=== PATIENT | male | born 1950 | race Caucasian/White ===

== ENCOUNTER → 2017-12-21 09:10 | Outpatient (CLI) | payer MEDICARE, SELFPAY ==
[2017-12-21 13:16] LABS: Absolute Lymphocyte Count 1.56 X10^3/ul (0.83-4.51); Absolute Neutrophil Count 5.3 X10^3/uL (2.0-7.7); Basophil# 0.02 X10^3/uL; Basophil% 0.3 % (0-1); Eosinophil# 0.26 X10^3/uL; Eosinophils% 3.4 % (0-5); Hematocrit 45.3 % (40-54); Hemoglobin 15.3 g/dl (13.0-16.5); Lymphocyte # 1.56 X10^3/ul (4.0); Lymphocyte % 20.2 % (19-41); Mean Corp Hgb Conc 33.8 g/gl (32-36); Mean Corpuscular Hgb 31.5 pg (27.0-32.0); Mean Corpuscular Volume 93.2 fL (80-94); Mean Platelet Vol. 10.3 fl (6.2-12.0); Monocyte# 0.59 X10^3/uL; Monocyte% 7.7 % (0-10); Neutrophil # 5.26 X10^3/uL (2.7-7.7); Neutrophil % 68.1 % (47-70); Platelet Count 183 K/mm3 (150-450); RBC Distribution Width SD 43.9 fl (35.1-43.9); Red Blood Count 4.86 M/mm3 (4.6-6.2); White Blood Count 7.7 K/mm3 (4.4-11.0)
[2017-12-21 13:18] LABS: POSITIVE COUNT NO; POSITIVE DIFFERENTIAL NO; POSITIVE MORPHOLOGY NO
[2017-12-21 13:23] LABS: Anion Gap 8 (5-15); BUN 16 mg/dL (7-18); BUN/Creat Ratio 17.3 RATIO (10-20); Chloride 105 mmol/L (98-107); Creatinine, Serum 0.93 mg/dL (0.70-1.30); EST Glomerular Filtration Rate 86 mL/min (>60); Est Glom Filt Rate - Afr Amer 105 mL/min (>60); Glucose 172 mg/dL (74-106); Potassium 4.4 mmol/L (3.5-5.1); Sodium Level 139 mmol/L (136-145)
== END ==
PROVIDERS: Visit Provider Family Medicine
DX: E11.9 Type 2 diabetes mellitus without complications (principal); I10 Essential (primary) hypertension
CPT/HCPCS: 36415; 80048; 85025

== ENCOUNTER → 2020-12-17 20:05 | Outpatient (CLI) | payer MEDICARE, SELFPAY | PROVIDERS: PCP Family Medicine; Visit Provider Internal Medicine Critical Care Medicine | DX: G47.33 Obstructive sleep apnea (adult) (pediatric) (principal) | CPT/HCPCS: 95811 ==

== ENCOUNTER 2021-02-02 17:37 | Emergency (ER) | payer MEDICARE, SELFPAY ==
[2021-01-31 08:41] VITALS: BMI 34.0
[2021-02-02 17:39] VITALS: BP 164/95; PULSE 87; RESP 17; TEMP 36.5; O2SAT 98; BMI 31.4
[2021-02-02 17:42] VITALS: O2SAT 96
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
[2021-02-02] MEDS: Ondansetron 4 MG/2 ML Vial IV (18:34)
[2021-02-02] MEDS: Morphine 4 MG/ML Syringe IV ×2 (18:34→21:24)
[2021-02-02 18:45] VITALS: BP 161/84; PULSE 92; RESP 16; O2SAT 96
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
[2021-02-02 19:23] VITALS: BP 161/84; PULSE 92; RESP 20; O2SAT 96
--- NOTE | 2021-02-02 20:01 | RAD_ITS ---
INDICATION: bloating EXAMINATION/TECHNIQUE: X-RAY - XR Abdomen 1 View COMPARISON: CT earlier same day FINDINGS: BOWEL GAS PATTERN: Non-obstructive. No bowel or stomach distention. FREE AIR: Not assessed on a single supine view. ORGANOMEGALY: Not seen. CALCIFICATIONS: No abnormal calcifications observed. LOWER CHEST: No acute pathology. BONES AND SOFT TISSUES: No acute pathology. There is excretion of intravenously administered contrast into the urinary bladder. RAD/Abdomen Single View IMPRESSION: Normal abdomen. Electronically Signed: Giovani Wright MD at 20:51 EDT Tel , Service support ,
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
[2021-02-02 21:25] VITALS: BP 155/81; PULSE 95; RESP 14; O2SAT 95
== END 2021-02-02 21:37 | disposition home or self-care (01) ==
LOC: ED 19:20
PROVIDERS: Emergency Provider Emergency Medicine; PCP Family Medicine
DX: S80.812A Abrasion, left lower leg, initial encounter (principal); S20.212A Contusion of left front wall of thorax, initial encounter; V43.52XA Car driver injured in collision with other type car in traffic accident, initial encounter; Y93.9 Activity, unspecified; Y92.410 Unspecified street and highway as the place of occurrence of the external cause; Y99.9 Unspecified external cause status
CPT/HCPCS: 71260; 73590; 74018; 74177; 96374; 96375; 96376; 99283; J7050; Q9967; A4216; J2405

== ENCOUNTER 2021-04-16 17:20 | Emergency (ER) | payer MEDICARE, SELFPAY ==
[2021-04-16 17:21] VITALS: BP 176/98; PULSE 83; RESP 16; TEMP 36.8; O2SAT 98; BMI 33.9
[2021-04-16 17:26] VITALS: BP 176/98; PULSE 83; RESP 16; TEMP 36.8; O2SAT 98
--- NOTE | 2021-04-16 17:52 | EDS_ITS ---
HPI History of Present Illness Chief Complaint: Allergic Reaction Informant: patient Onset/Context/Timing Onset: Yesterday Context: Gradual Onset Current Severity: Mild Maximum Severity: Mild Narrative Narrative: Patient presents secondary to allergic reaction. Patient states yesterday he noted a rash on his abdomen and chest and some swelling in his lower lip. He was out mowing recently but denies any bites that he can think of. He also takes lisinopril. No other new medications or foods. Patient states after taking his morning medicines he felt like his lip swelling got a little worse. He did try some Benadryl around noon with no significant improvement. [facility] Medical History (Updated 04/16/21 @ 21:[address] Mckenzie Gomez MD) Diabetes mellitus Essential hypertension Hyperlipidemia Obesity Home Medications ascorbic acid (vitamin C) 500 mg capsule 500 mg PO DAILY 11/21/20 [History Last Taken Unknown] aspirin 81 mg tablet,delayed release 81 mg PO DAILY 11/21/20 [History Last Taken Unknown] glimepiride 4 mg tablet 4 mg PO DAILY 11/21/20 [History Last Taken Unknown] metformin 850 mg tablet 850 mg PO TID 11/21/20 [History Last Taken Unknown] montelukast 10 mg tablet 10 mg PO DAILY 11/21/20 [History Last Taken Unknown] omega 0-mbm-uen-fish oil 60 mg-90 mg-500 mg capsule 1 cap PO DAILY 11/21/20 [History Last Taken Unknown] vitamin E (dl, acetate) 400 unit capsule 450 mg PO DAILY 11/21/20 [History Last Taken Unknown] docusate sodium 100 mg PO DAILY #20 capsule 02/02/21 [Rx Last Taken Unknown] amlodipine [Norvasc] 5 mg PO DAILY #30 tab 04/16/21 [Rx Last Taken Unknown] prednisone 40 mg PO DAILY #6 tab 04/16/21 [Rx Last Taken Unknown] Allergy/AdvReac Type Severity Reaction Status Date / Time No Known Allergies Allergy Unverified 02/02/21 17:39 Family History Other Cancer Heart disease Surgical History History of knee replacement Social History Smoking Status: Never smoker ROS ROS ED Constitutional Constitutional ED: Denies chills or fever(s) Eyes Eyes: Denies change in vision ENT ENT ED: Reports other Details: Lower lip edema ; Denies sore throat Cardiovascular Cardiovascular: Denies chest pain Respiratory/Chest Respiratory/Chest: Denies cough or dyspnea Gastrointestinal Gastrointestinal: Denies abdominal pain, diarrhea, nausea or vomiting Genitourinary Genitourinary ED: Denies dysuria Musculoskeletal Musculoskeletal: Denies back pain Integumentary Reports rash Neurologic Neurologic: Denies headache(s) or weakness Psychiatric Psychiatric: Denies anxiety or depression Endocrine Endocrinology: Denies polydipsia or polyuria Allergic/Immunologic Allergic/Immunologic ED: Denies urticaria EXAM Physical Exam Const Vital Signs: 04/16/21 17:21 04/16/21 17:26 04/16/21 19:59 Temperature 98.2 F 98.2 F Temperature Source Temporal Temporal Pulse Rate 83 83 90 Respiratory Rate 16 16 16 Blood Pressure 176/98 H 176/98 H 208/111 H Blood Pressure Mean 124 124 143 Pulse Ox 98 98 99 Oxygen Delivery Method Room Air Room Air Room Air Positive well nourished and well developed General Appearance ED: well developed HEENT Reports normocephalic and head/scalp atraumatic HEENT Narrative: Mild lower lip edema. No tongue edema. Posterior pharynx exam normal. Speaks with a strong voice and tolerate secretions well. Eyes PERRL and EOMs intact bilaterally Neck supple Chest Wall inspection of chest normal and palpation of chest normal Resp normal respiratory effort and clear to auscultation bilaterally Cardio regular rate and regular rhythm GI normal to inspection, nondistended, normoactive bowel sounds Palpation: soft Extremity normal to inspection Neuro oriented x3 and no sensory deficits noted Sensorium / Orientation: alert Motor Exam: strength 5/5 throughout Psych mental status grossly normal Skin Skin Narrative: Faint urticarial lesions noted on the abdomen and bilateral shoulders. MDM MDM MDM Narrative Medical decision making narrative: Patient was given Benadryl, Solu-Medrol, Pepcid and observed on monitoring analyst. Treatment and Re-Evaluation Comments:: Patient has been observed for nearly 4 hours. Lower lip swelling is improving. He has been able to tolerate p.o. without difficulty. He did recei ve a dose of labetalol for blood pressure. I spoke with the patient's primary care physician and would like his Norvasc instead. He would like to see the patient in the office on Thursday. Discharge Plan Triage Chief Complaint: Allergic Reaction ED Provider: Mckenzie Gomez Dx/Rx/DC Orders Clinical Impression: Angioedema Instructions: ED Angioedema Prescriptions: New amlodipine [Norvasc] 5 mg tablet 5 mg PO DAILY Qty: 30 RF: 0 prednisone 20 mg tablet 40 mg PO DAILY Qty: 6 RF: 0 Discontinued lisinopril 10 mg tablet 10 mg PO DAILY RF: 0 No Action omega 6-sxe-uyy-fish oil [Fish Oil] 60-90-500 mg capsule 1 cap PO DAILY RF: 0 glimepiride 4 mg tablet 4 mg PO DAILY RF: 0 montelukast 10 mg tablet 10 mg PO DAILY RF: 0 ascorbic acid (vitamin C) 500 mg capsule 500 mg PO DAILY RF: 0 vitamin E (dl, acetate) 400 unit capsule 450 mg PO DAILY RF: 0 aspirin 81 mg tablet,delayed release (DR/EC) 81 mg PO DAILY RF: 0 metformin 850 mg tablet 850 mg PO TID RF: 0 docusate sodium 100 MG capsule 100 mg PO DAILY Qty: 20 RF: 0 Primary Care Provider: Willie Pitts Referrals: Willie Pitts MD [Primary Care Provider] - 3-5 Days Activity Restrictions/Additional Instructions: You will stop taking your lisinopril for blood pressure. He will start taking Norvasc instead. This prescription has been sent to the pharmacy for you. Dr. Pitts would like to see you in the office on Thursday for a repeat evaluation. Please call his office tomorrow for an appointment. Disposition Disposition: Home, self care
[2021-04-16] MEDS: MethylPREDNISolone 125 MG/2 ML Vial IV (18:01)
[2021-04-16] MEDS: DiphenhydrAMINE 50 MG/ML Syringe 25 MG IV (18:02)
[2021-04-16] MEDS: Famotidine 200 MG/20 ML MDV 20 MG in 0.9% Normal Saline (Pres. free 8 ML 300 MG IV (18:08)
--- NOTE | 2021-04-16 19:32 | CM.ED ---
SW Note TOMMY Referral : RN Reason for Referral: Patient has had multiple losses this year, including of 28 years, to COVID. Patient had 4 friends and 2 of 's sister also from COVID. SW met with patient. SW provided emotional support. Patient feels shame related to him not being present when his of COVID. He and were 28 years. Patient reports he has thought about going to [facility]. SW discussed counseling that [facility]osp[facility] provides and encouraged patient to contact [facility]. Patient verbalized understanding and appeared receptive to reaching out for counseling support. SW provided patient with phone number for [facility]. Plan: Discharge with phone number to contact [facility] for counseling support. Vannesa TAYLOR
[2021-04-16 19:59] VITALS: BP 208/111; PULSE 90; RESP 16; O2SAT 99
[2021-04-16] MEDS: Labetalol 100 MG/20 ML Vial 10 MG IV (20:00)
[2021-04-16 21:25] VITALS: BP 154/85; PULSE 84; RESP 16; O2SAT 94
[2021-04-16 21:28] VITALS: BP 154/85; PULSE 84; RESP 16; O2SAT 94
== END 2021-04-16 21:33 | disposition home or self-care (01) ==
PROVIDERS: Emergency Provider Emergency Medicine; PCP Family Medicine
DX: T78.3XXA Angioneurotic edema, initial encounter (principal); Z96.659 Presence of unspecified artificial knee joint; E11.9 Type 2 diabetes mellitus without complications; I10 Essential (primary) hypertension; E78.5 Hyperlipidemia, unspecified
CPT/HCPCS: 96374; 96375; 99284; A4216; J3490

== ENCOUNTER 2021-05-09 11:25 | Emergency (ER) | payer MEDICARE, SELFPAY ==
[2021-04-23 08:38] VITALS: BMI 33.9
[2021-05-09 11:26] VITALS: BP 180/105; PULSE 95; RESP 16; TEMP 36; O2SAT 97; BMI 34.2
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
--- NOTE | 2021-05-09 11:48 | EDS_ITS ---
HPI History of Present Illness Chief Complaint: Allergic Reaction Informant: patient Onset/Context/Timing Onset: Today Context: Gradual Onset Timing: Intermittent Current Severity: Moderate Maximum Severity: Moderate Narrative Narrative: Patient is a 71-year-old male presents to the emergency department with urticaria. Patient states that he was recently found to have angioedema. His lisinopril was stopped. He was put on an alpha-ashwin. He states his been taking it for 2 weeks. States today, he noticed a area of hives on his arm. Shortly thereafter, it spread to his chest and abdomen. He states he also had some facial fullness and flushing. He denies trouble speaking or swallowing. He states that he also had a mechanical fall last night. He was try to get out of bed, tripped over his dog, and landed on his left chest and shoulder. He did not strike his head or lose consciousness. [facility] Medical History Diabetes mellitus Essential hypertension Hyperlipidemia Obesity Home Medications ascorbic acid (vitamin C) 500 mg capsule 500 mg PO DAILY 11/21/20 [History Last Taken Unknown] aspirin 81 mg tablet,delayed release 81 mg PO DAILY 11/21/20 [History Last Taken Unknown] glimepiride 4 mg tablet 4 mg PO DAILY 11/21/20 [History Last Taken Unknown] metformin 850 mg tablet 850 mg PO TID 11/21/20 [History Last Taken Unknown] montelukast 10 mg tablet 10 mg PO DAILY 11/21/20 [History Last Taken Unknown] omega 4-mfq-owy-fish oil 60 mg-90 mg-500 mg capsule 1 cap PO DAILY 11/21/20 [History Last Taken Unknown] alprazolam 1 - 2 mg PO BID 05/09/21 [History Last Taken Unknown] prednisone 60 mg PO DAILY #15 tablet 05/09/21 [Rx Last Taken Unknown] terazosin 1 mg PO QHS 05/09/21 [History Last Taken Unknown] Allergy/AdvReac Type Severity Reaction Status Date / Time lisinopril AdvReac swelling Verified 05/09/21 11:28 Family History Other Cancer Heart disease Surgical History History of knee replacement Social History Smoking Status: Never smoker ROS ROS ED Constitutional Constitutional ED: Denies chills or fever(s) Eyes Eyes: Denies blurry vision or change in vision ENT ENT ED: Denies ear pain or sore throat Cardiovascular Cardiovascular: Denies chest pain or palpitations Respiratory/Chest Respiratory/Chest: Denies cough, dyspnea or dyspnea on exertion Gastrointestinal Gastrointestinal: Denies abdominal pain, nausea or vomiting Genitourinary Genitourinary ED: Denies dysuria or urinary frequency Musculoskeletal Musculoskeletal: Denies arthralgias or myalgias Integumentary Reports rash Neurologic Neurologic: Denies headache(s) or paresthesias Psychiatric Psychiatric: Denies anxiety or depression Endocrine Endocrinology: Denies polydipsia or polyuria Allergic/Immunologic Allergic/Immunologic ED: Denies urticaria EXAM Physical Exam Const Vital Signs: 05/09/21 11:26 Temperature 96.8 F L Temperature Source Temporal Pulse Rate 95 Respiratory Rate 16 Blood Pressure 180/105 H Blood Pressure Mean 130 Pulse Ox 97 Oxygen Delivery Method Room Air Positive well nourished and well developed General Appearance ED: well developed HEENT Reports normocephalic, head/scalp atraumatic and moist mucous membranes Eyes PERRL and EOMs intact bilaterally Neck no lymphadenopathy and supple General: Negative for tenderness Chest Wall inspection of chest normal Chest Narrative: Tenderness over left lateral ribs without step-off. Resp normal respiratory effort and clear to auscultation bilaterally Cardio regular rate, regular rhythm and no murmurs GI normal to inspection, nondistended, normoactive bowel sounds Palpation: Negative for tender, guarding or rebound tenderness present Back/Spine no CVA tenderness Cervical Spine: Negative for cervical spine tenderness Thoracic Spine / Upper Back: Negative for thoracic spinal tenderness Extremity normal to inspection General Extremety ED: Negative for tenderness Neuro oriented x3 and CN's II-XII intact bilaterally Neuro Narrative: No focal deficits appreciated. Sensorium / Orientation: alert Psych mental status grossly normal Skin no wounds and skin turgor normal Skin Narrative: Urticaria on chest and arms. Mild facial urticaria. Rashes: rashes noted MDM MDM MDM Narrative Medical decision making narrative: Patient presents with rash. It does appear to be urticarial. He has no angioedema. He has no evidence of anaphylaxis. Patient was given Benadryl and Solu-Medrol. He was observed. He had resolution of his rash and no recurrence. I did obtain plain films of his shoulder and ribs given his fall. These are both unremarkable for fracture. At this point, I am going to discharge patient with a short prednisone burst. I am going to have him stop his in hypertensives until he follows up with his primary care. He will be discharged home. Impression 1. Allergic reaction to drug 2. Left shoulder contusion Radiography Diagnostic Testing: Radiology Impression Shoulder X-Ray 05/09/21 11:44 IMPRESSION: 1. No acute fracture or dislocation. 2. Hydroxyapatite deposition disease (calcific tendinitis). Electronically Signed: Aden Pardo MD at 12:49 EDT Tel , Service support , Ribs w/Chest X-Ray 05/09/21 12:25 IMPRESSION: RIBS: Normal x-ray examination of the ribs. CHEST: Normal x-ray examination of the chest. Electronically Signed: Aden Pardo MD at 12:51 EDT Tel , Service support , Discharge Plan Triage Chief Complaint: Allergic Reaction ED Provider: Irving Dumont Dx/Rx/DC Orders Instructions: ED ADVERSE DRUG REACTION Allergic Prescriptions: New prednisone 20 MG tablet 60 mg PO DAILY Qty: 15 RF: 0 No Action omega 6-gpf-obr-fish oil [Fish Oil] 60-90-500 mg capsule 1 cap PO DAILY RF: 0 glimepiride 4 mg tablet 4 mg PO DAILY RF: 0 montelukast 10 mg tablet 10 mg PO DAILY RF: 0 ascorbic acid (vitamin C) 500 mg capsule 500 mg PO DAILY RF: 0 aspirin 81 mg tablet,delayed release (DR/EC) 81 mg PO DAILY RF: 0 metformin 850 mg tablet 850 mg PO TID RF: 0 alprazolam 1 mg tablet 1 - 2 mg PO BID RF: 0 terazosin 1 mg capsule 1 mg PO QHS RF: 0 Primary Care Provider: Willie Pitts Referrals: Willie Pitts MD [Primary Care Provider] - Activity Restrictions/Additional Instructions: Stop taking your blood pressure medication until you see your doctor.
[2021-05-09] MEDS: DiphenhydrAMINE 50 MG/ML Syringe 25 MG IV (12:07)
[2021-05-09] MEDS: MethylPREDNISolone 125 MG/2 ML Vial IV (12:08)
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
[2021-05-09 13:28] VITALS: BP 157/86; PULSE 79; RESP 17; O2SAT 99
== END 2021-05-09 13:29 | disposition home or self-care (01) ==
LOC: ED 12:46
PROVIDERS: Emergency Provider Emergency Medicine; PCP Family Medicine
DX: T78.40XA Allergy, unspecified, initial encounter (principal); S40.012A Contusion of left shoulder, initial encounter; W01.0XXA Fall on same level from slipping, tripping and stumbling without subsequent striking against object, initial encounter; E11.9 Type 2 diabetes mellitus without complications; E78.5 Hyperlipidemia, unspecified; I10 Essential (primary) hypertension; E66.9 Obesity, unspecified; Z79.52 Long term (current) use of systemic steroids; Z79.82 Long term (current) use of aspirin; Z79.84 Long term (current) use of oral hypoglycemic drugs; Z79.899 Other long term (current) drug therapy
CPT/HCPCS: 71101; 73030; 96374; 96375; 99284; J7040

== ENCOUNTER → 2021-05-20 20:00 | Outpatient (CLI) | payer MEDICARE, SELFPAY ==
[2021-04-23 08:38] VITALS: BMI 33.9
== END ==
PROVIDERS: PCP Family Medicine; Referring Provider Internal Medicine Critical Care Medicine; Visit Provider Internal Medicine Critical Care Medicine
DX: G47.33 Obstructive sleep apnea (adult) (pediatric) (principal)
CPT/HCPCS: 95811

== ENCOUNTER 2022-04-11 09:26 | Outpatient (CLI) | payer MEDICARE, SELFPAY ==
[2022-04-11 12:34] LABS: Absolute Lymphocyte Count 1.73 X10^3/uL (0.83-4.51); Absolute Neutrophil Count 4.7 X10^3/uL (2.0-7.7); Basophil# 0.05 X10^3/uL; Basophil% 0.7 % (0-1); Eosinophil# 0.23 X10^3/uL; Eosinophils% 3.2 % (0-5); Hematocrit 43.2 % (40-54); Hemoglobin 15.1 g/dL (13.0-16.5); Lymphocyte # 1.73 X10^3/ul (0.83-4.51); Lymphocyte % 23.8 % (19-41); Mean Corpuscular Hgb 32.2 pg (27.0-32.0); Mean Corpuscular Volume 92.1 fL (80-94); Mean Platelet Vol. 9.6 fl (6.2-12.0); Monocyte# 0.58 X10^3/uL; NRBC Flagged by Analyzer 0 % (0-5); Neutrophil # 4.65 X10^3/uL (2.7-7.7); Neutrophil % 63.8 % (47-70); Platelet Count 182 K/mm3 (150-450); RBC Distribution Width CV 12.5 % (11.6-14.6); RBC Distribution Width SD 41.7 fl (35.1-43.9); Red Blood Count 4.69 M/mm3 (4.6-6.2); White Blood Count 7.3 K/mm3 (4.4-11.0)
[2022-04-11 12:52] LABS: ALB/GLOB Ratio 1.1 RATIO (0.9-2.4); AST(SGOT) 13 U/L (15-37); Alanine Aminotransfer ALT/SGPT 25 U/L (16-61); Alkaline Phosphatase 77 U/L (45-117); Anion Gap 5 (5-15); BUN 17 mg/dL (7-18); BUN/Creat Ratio 15.7 RATIO (10-20); Chloride 106 mmol/L (98-107); Cholesterol 179 mg/dL (200); Creatinine, Serum 1.08 mg/dL (0.70-1.30); EST Glomerular Filtration Rate 71 mL/min (>60); Est Glom Filt Rate - Afr Amer 86 mL/min (>60); Globulin 3.8 g/dL (2.2-4.2); Glucose 163 mg/dL (74-106); High Density Lipoprotein 52 mg/dL; PSA,Total - Annual Screen 1.19 ng/mL (0.00-4.00); Potassium 4.3 mmol/L (3.5-5.1); Protein, Total 7.8 g/dL (6.4-8.2); Sodium Level 138 mmol/L (136-145); Triglycerides 83 mg/dL; Very Low Density Lipoprotein 17 mg/dL (5-40)
== END 2022-04-11 23:59 | disposition home or self-care (01) ==
LOC: MTLAB 09:27
PROVIDERS: PCP Family Medicine; Referring Provider Family Medicine; Visit Provider Family Medicine
DX: E11.65 Type 2 diabetes mellitus with hyperglycemia (principal); E78.5 Hyperlipidemia, unspecified; I10 Essential (primary) hypertension; Z80.42 Family history of malignant neoplasm of prostate; Z12.5 Encounter for screening for malignant neoplasm of prostate
CPT/HCPCS: 36415; 80053; 80061; 84153; 85025; G0103

== ENCOUNTER 2022-05-08 11:24 | Emergency (ER) | payer MEDICARE, SELFPAY ==
[2022-05-08 11:25] VITALS: BP 141/92; PULSE 105; RESP 18; TEMP 36.6; O2SAT 96; BMI 36.0
--- NOTE | 2022-05-08 11:59 | RAD_ITS ---
STUDY: X-RAY - SOFT TISSUE NECK REASON FOR EXAM: Male, 72 years old. Anterior neck pain, change in voice TECHNIQUE: 2 view(s) of the neck were obtained. COMPARISON: None. FINDINGS: Normal visualized nasopharynx, oropharynx, hypopharynx. Normal epiglottis. Normal visualized subglottic tracheal air column. Normal prevertebral soft tissue structures. There are degenerative changes of the cervical spine with cervical spondylosis. The soft tissue structures are unremarkable. RAD/Neck for Soft Tissue IMPRESSION: 1. Normal x-ray soft tissue neck. 2. CT of the soft tissues of the neck can be performed if symptoms persist. Electronically Signed: Ebenezer Bell MD at 12:25 EDT ,
--- NOTE | 2022-05-08 12:15 | EX.ED.VIS.UR ---
HPI HPI - URI History of Present Illness Chief Complaint: Other, Pain/Inj Detail of Chief Complaint: Sore throat, difficulty swallowing Informant: patient Onset/Context/Timing Onset: Weeks (Symptoms started proxy 1 week ago. Negative rapid strep and follow-up culture) Context: Sudden Onset Timing: Continuous Quality: Pain Location: Anterior neck bilaterally Current Severity: Mild Maximum Severity: Moderate Worsened by: Swallowing, Eating Solids and Drinking Liquids Relieved by: Not Relieved By Tylenol or NSAIDs Associated Symptoms Associated Symptoms: Positive for Nasal Congestion (The initial 3 days of illness) and Myalgias (Initial days of illness); Negative for Headache, Sinus Pressure, Nausea, Vomiting, Diarrhea, Shortness of Breath, Chest Pain, Nonproductive cough, Hemoptysis or Productive Cough Narrative Narrative: Patient is a 72-year-old male who presents with sore throat. He reports difficulty swallowing. He may have slight change in voice. He denies fever, chills night sweats. States initially there were white spots in the back of his throat. He went to urgent care. Rapid strep was negative. Follow-up culture was negative. Patient has persistent symptoms. He denies documented fever and denies chills. Denies cough. He initially had nasal congestion. His nasal congestion has resolved. He denies GI symptoms. He initially had myalgias and arthralgias. Prior similar symptoms: Yes Recent Illness/Hospitalization: No ROS ROS ED Constitutional Constitutional ED: Denies chills, fever(s), subjective, sweats or weight loss Eyes Eyes: Denies blurry vision, change in vision or diplopia ENT ENT ED: Reports sore throat; Denies ear pain or rhinorrhea Cardiovascular Cardiovascular: Denies chest pain, palpitations or racing heartbeat Respiratory/Chest Respiratory/Chest: Denies cough, dyspnea or dyspnea on exertion Gastrointestinal Gastrointestinal: Denies diarrhea, nausea or vomiting Musculoskeletal Musculoskeletal: Reports arthralgias, myalgias and neck pain; Denies back pain Integumentary Denies Abrasions or rash Neurologic Neurologic: Denies headache(s) Hematologic/Lymphatic Hematologic/Lymphatic: Reports lymphadenopathy; Denies easy bleeding or easy bruising Allergic/Immunologic Allergic/Immunologic ED: Denies mouth swelling, tongue swelling or urticaria [facility] Medical History (Updated 05/08/22 @ 12:[address] Alexander Aleln MD) Diabetes mellitus Essential hypertension Hyperlipidemia Obesity Home Medications ascorbic acid (vitamin C) 500 mg capsule 500 mg PO DAILY 11/21/20 [History Last Taken Unknown] aspirin 81 mg tablet,delayed release 81 mg PO DAILY 11/21/20 [History Last Taken Unknown] glimepiride 4 mg tablet 4 mg PO DAILY 11/21/20 [History Last Taken Unknown] metformin 850 mg tablet 850 mg PO TID 11/21/20 [History Last Taken Unknown] montelukast 10 mg tablet 10 mg PO DAILY 11/21/20 [History Last Taken Unknown] omega 6-zru-kdf-fish oil 60 mg-90 mg-500 mg capsule (Fish Oil) 1 cap PO DAILY 11/21/20 [History Last Taken Unknown] alprazolam 1 mg tablet 1 - 2 mg PO BID 05/09/21 [History Last Taken Unknown] terazosin 1 mg capsule 1 mg PO QHS 05/09/21 [History Last Taken Unknown] doxepin 10 mg capsule 10 mg PO QHS 06/12/21 [History Last Taken Unknown] levocetirizine 5 mg tablet 5 mg PO DAILY 06/12/21 [History Last Taken Unknown] Allergy/AdvReac Type Severity Reaction Status Date / Time lisinopril AdvReac swelling Verified 05/08/22 11:27 Family History Other Cancer Heart disease Surgical History History of knee replacement Social History (Updated 05/08/22 @ 12:[address] Alexander Allen MD) household members: none Smoking Status: Never smoker substance use type: does not use EXAM Physical Exam Narrative Exam Narrative: Patient is a heavyset gentleman appears in no distress. Const Vital Signs: 05/08/22 11:25 05/08/22 11:36 Temperature 97.9 F Temperature Source Temporal Pulse Rate 105 H Respiratory Rate 18 Respiratory Effort Normal Respiratory Pattern Normal Blood Pressure 141/92 H Blood Pressure Mean 108 Pulse Ox 96 Oxygen Delivery Method Room Air Positive well nourished, well developed and obese; Negative for cachectic or contractures General Appearance ED: well developed and NAD; Negative for cachectic, contractures, cyanotic, diaphoretic or pallor Nutritional Appearance: obese; Negative for cachectic HEENT Reports moist mucous membranes HEENT Narrative: Uvula is midline. There is no erythema or exudate. There is no evidence of angioedema. normocephalic and atraumatic Face and Sinus: Negative for sinus tenderness Throat: posterior oropharynx normal Eyes PERRL and EOMs intact bilaterally Eyes Narrative: Sclera is anicteric. Conjunctive is pink. Neck No no lymphadenopathy, supple and no meningeal signs Neck Narrative: There is 1 shoddy anterior left cervical node noted. There is no in-store extra stridor. There is no true discomfort with movement of the larynx. General: lymphadenopathy; Negative for anterior neck swelling Resp normal respiratory effort and clear to auscultation bilaterally Cardio S1 normal heart sound, S2 normal heart sound and no murmurs Rate: regular rate Rhythm: regular rhythm GI non-tender GI Narrative: There is no splenomegaly. There is no tenderness. Neuro oriented x3, CN's II-XII intact bilaterally and no sensory deficits noted Sensorium / Orientation: alert Motor Exam: strength 5/5 throughout Psych mental status grossly normal Psych Narrative: Thought process is normal. Skin General Skin Exam: Negative for jaundice or pallor Lesions: no lesions Rashes: no rashes MDM MDM MDM Narrative Medical decision making narrative: With symptoms for 1 month complaint of anterior neck pain and trouble swallowing soft tissue x-ray of the neck was obtained to assess for retropharyngeal abscess, epiglottitis parapharyngeal abscess Treatment and Re-Evaluation Narrative: 2 view soft tissue x-ray of the neck interpreted independently by me at 1215 reveals no evidence of epiglottitis, retropharyngeal abscess or parapharyngeal abscess. There is no enlarged sublingual tonsils noted either. Discharge Plan Triage Chief Complaint: Other, Pain/Inj ED Provider: Alexander Allen Dx/Rx/DC Orders Clinical Impression: Acute viral pharyngitis Instructions: ED Pharyngitis, Viral Prescriptions: No Action omega 8-dhr-cyp-fish oil [Fish Oil] 60-90-500 mg capsule 1 cap PO DAILY glimepiride 4 mg tablet 4 mg PO DAILY montelukast 10 mg tablet 10 mg PO DAILY ascorbic acid (vitamin C) 500 mg capsule 500 mg PO DAILY aspirin 81 mg tablet,delayed release (DR/EC) 81 mg PO DAILY metformin 850 mg tablet 850 mg PO TID doxepin 10 mg capsule 10 mg PO QHS levocetirizine 5 mg tablet 5 mg PO DAILY alprazolam 1 mg tablet 1 - 2 mg PO BID terazosin 1 mg capsule 1 mg PO QHS Label Comments: TAKE 1 CAPSULE DAILY AT BEDTIME Primary Care Provider: Willie Pitts Referrals: Willie Pitts MD [Primary Care Provider] - 1 Week if not improving Activity Restrictions/Additional Instructions: You can either use Cepastat lozenges or Chloraseptic spray for the discomfort. You have a viral infection. You may be ill for another week. Return if you have drooling, or difficulty breathing. Disposition Disposition: Home, Self Care
== END 2022-05-08 12:28 | disposition home or self-care (01) ==
PROVIDERS: Emergency Provider Emergency Medicine; PCP Family Medicine; Visit Provider Emergency Medicine
DX: J02.8 Acute pharyngitis due to other specified organisms (principal); E11.9 Type 2 diabetes mellitus without complications; M79.10 Myalgia, unspecified site; B97.89 Other viral agents as the cause of diseases classified elsewhere; I10 Essential (primary) hypertension; E78.5 Hyperlipidemia, unspecified
CPT/HCPCS: 70360; 99283

== ENCOUNTER → 2022-06-03 | Outpatient (CLI) | payer MEDICARE, SELFPAY | END | disposition home or self-care (01) | LOC: SL 11:55 | PROVIDERS: PCP Family Medicine; Referring Provider Internal Medicine Critical Care Medicine; Visit Provider Internal Medicine Critical Care Medicine | DX: G47.33 Obstructive sleep apnea (adult) (pediatric) (principal) | CPT/HCPCS: 98960; G0463 ==

== ENCOUNTER → 2022-08-28 | Outpatient (CLI) | payer MEDICARE, SELFPAY | END | disposition home or self-care (01) | LOC: SL 13:52 | PROVIDERS: PCP Family Medicine; Visit Provider Nurse Practitioner Acute Care | DX: G47.33 Obstructive sleep apnea (adult) (pediatric) (principal) | CPT/HCPCS: 98960; G0463 ==

== ENCOUNTER 2023-02-12 09:00 | Outpatient (RCR) | payer MEDICARE, SELFPAY | END 2023-02-13 23:59 | LOC: DC 09:00 | PROVIDERS: PCP Family Medicine; Referring Provider Family Medicine; Visit Provider Family Medicine | DX: E11.49 Type 2 diabetes mellitus with other diabetic neurological complication (principal) | CPT/HCPCS: 97802; G0108 ==

== ENCOUNTER 2023-03-05 09:00 | Outpatient (RCR) | payer MEDICARE, SELFPAY | END 2023-03-15 23:59 | LOC: DC 09:00 | PROVIDERS: PCP Family Medicine; Referring Provider Family Medicine; Visit Provider Family Medicine | DX: E11.49 Type 2 diabetes mellitus with other diabetic neurological complication (principal) | CPT/HCPCS: 97803; G0108 ==

== ENCOUNTER 2023-04-07 08:00 | Outpatient (RCR) | payer MEDICARE, SELFPAY | END 2023-04-15 23:59 | LOC: DC 08:00 | PROVIDERS: PCP Family Medicine; Referring Provider Family Medicine; Visit Provider Family Medicine | DX: E11.49 Type 2 diabetes mellitus with other diabetic neurological complication (principal) | CPT/HCPCS: 97803; G0108 ==

== ENCOUNTER → 2023-04-21 | Outpatient (CLI) | payer MEDICARE, SELFPAY ==
[2023-04-21 12:33] LABS: Absolute Lymphocyte Count 1.35 X10^3/uL (0.83-4.51); Absolute Neutrophil Count 5.5 X10^3/uL (2.0-7.7); Basophil# 0.05 X10^3/uL; Basophil% 0.6 % (0-1); Eosinophil# 0.23 X10^3/uL; Eosinophils% 2.9 % (0-5); Hematocrit 44.2 % (40-54); Hemoglobin 15.2 g/dL (13.0-16.5); Lymphocyte # 1.35 X10^3/ul (0.83-4.51); Lymphocyte % 17.2 % (19-41); Mean Corp Hgb Conc 34.4 g/dL (32-36); Mean Corpuscular Hgb 32.4 pg (27.0-32.0); Mean Corpuscular Volume 94.2 fL (80-94); Mean Platelet Vol. 10.4 fl (6.2-12.0); Monocyte# 0.68 X10^3/uL; Monocyte% 8.7 % (0-10); NRBC Flagged by Analyzer 0 % (0-5); Neutrophil # 5.49 X10^3/uL (2.7-7.7); Neutrophil % 70.1 % (47-70); Platelet Count 190 K/mm3 (150-450); RBC Distribution Width CV 12.3 % (11.6-14.6); RBC Distribution Width SD 42.5 fl (35.1-43.9); Red Blood Count 4.69 M/mm3 (4.6-6.2); White Blood Count 7.8 K/mm3 (4.4-11.0)
[2023-04-21 12:56] LABS: ALB/GLOB Ratio 1.1 RATIO (0.9-2.4); AST(SGOT) 15 U/L (15-37); Alanine Aminotransfer ALT/SGPT 18 U/L (16-61); Albumin, Serum 4.1 g/dL (3.2-5.0); Alkaline Phosphatase 91 U/L (45-117); Anion Gap 7 (5-15); BUN 14 mg/dL (7-18); BUN/Creat Ratio 12.4 RATIO (10-20); Calcium,Total 9.4 mg/dL (8.5-10.1); Chloride 106 mmol/L (98-107); Creatinine, Serum 1.13 mg/dL (0.70-1.30); EST Glomerular Filtration Rate 68 mL/min (>60); Est Glom Filt Rate - Afr Amer 82 mL/min (>60); Globulin 3.7 g/dL (2.2-4.2); Glucose 144 mg/dL (74-106); Potassium 4.2 mmol/L (3.5-5.1); Protein, Total 7.8 g/dL (6.4-8.2); Sodium Level 138 mmol/L (136-145)
== END | disposition home or self-care (01) ==
LOC: BFHLAB 09:21
PROVIDERS: PCP Nurse Practitioner Family; Referring Provider Nurse Practitioner Family; Visit Provider Nurse Practitioner Family
DX: I10 Essential (primary) hypertension (principal)
CPT/HCPCS: 36415; 80053; 85025

== ENCOUNTER → 2024-06-27 | Outpatient (CLI) | payer MEDICARE, SELFPAY ==
[2024-06-27 08:58] LABS: Absolute Lymphocyte Count 1.22 X10^3/uL (0.83-4.51); Absolute Neutrophil Count 4.8 X10^3/uL (2.0-7.7); Basophil# 0.05 X10^3/uL; Basophil% 0.7 % (0-1); Eosinophils% 2.9 % (0-5); Hematocrit 41.8 % (40-54); Hemoglobin 14.4 g/dL (13.0-16.5); Lymphocyte # 1.22 X10^3/ul (0.83-4.51); Lymphocyte % 17.8 % (19-41); Mean Corp Hgb Conc 34.4 g/dL (32-36); Mean Corpuscular Hgb 32.4 pg (27.0-32.0); Mean Corpuscular Volume 94.1 fL (80-94); Mean Platelet Vol. 9.8 fl (6.2-12.0); Monocyte# 0.55 X10^3/uL; NRBC Flagged by Analyzer 0 % (0-5); Neutrophil # 4.77 X10^3/uL (2.7-7.7); Neutrophil % 69.7 % (47-70); Platelet Count 184 K/mm3 (150-450); RBC Distribution Width CV 12.7 % (11.6-14.6); RBC Distribution Width SD 43.8 fl (35.1-43.9); Red Blood Count 4.44 M/mm3 (4.6-6.2); White Blood Count 6.9 K/mm3 (4.4-11.0)
[2024-06-27 10:45] LABS: AST(SGOT) 14 U/L (15-37); Alanine Aminotransfer ALT/SGPT 25 U/L (16-61); Albumin, Serum 3.7 g/dL (3.2-5.0); Alkaline Phosphatase 139 U/L (45-117); Anion Gap 4 (5-15); BUN 14 mg/dL (7-18); BUN/Creat Ratio 13.3 RATIO (10-20); Calcium,Total 8.7 mg/dL (8.5-10.1); Chloride 104 mmol/L (98-107); Cholesterol 157 mg/dL (200); Creatinine, Serum 1.05 mg/dL (0.70-1.30); EST Glomerular Filtration Rate 73 mL/min (>60); Est Glom Filt Rate - Afr Amer 89 mL/min (>60); Globulin 3.6 g/dL (2.2-4.2); Glucose 293 mg/dL (74-106); High Density Lipoprotein 49 mg/dL; PSA,Total - Annual Screen 1.29 ng/mL (0.00-4.00); Potassium 4.2 mmol/L (3.5-5.1); Protein, Total 7.3 g/dL (6.4-8.2); Sodium Level 135 mmol/L (136-145); Triglycerides 97 mg/dL; Very Low Density Lipoprotein 19 mg/dL (5-40)
== END | disposition home or self-care (01) ==
LOC: MTLAB 07:34
PROVIDERS: PCP Nurse Practitioner Family; Referring Provider Nurse Practitioner Family; Visit Provider Nurse Practitioner Family
DX: I10 Essential (primary) hypertension (principal); E78.5 Hyperlipidemia, unspecified; Z12.5 Encounter for screening for malignant neoplasm of prostate
CPT/HCPCS: 36415; 80053; 80061; 84153; 85025; G0103

== ENCOUNTER → 2025-01-16 | Outpatient (CLI) | payer MEDICARE, SELFPAY ==
[2025-01-16 13:15] LABS: Hemoglobin A1c 9.2 % (<=5.6)
== END | disposition home or self-care (01) ==
LOC: BFHLAB 09:35
PROVIDERS: PCP Nurse Practitioner Family; Referring Provider Nurse Practitioner Family; Visit Provider Nurse Practitioner Family
DX: E11.49 Type 2 diabetes mellitus with other diabetic neurological complication (principal)
CPT/HCPCS: 36415; 83036

== ENCOUNTER → 2025-07-21 | Outpatient (CLI) | payer MEDICARE, SELFPAY ==
--- OUTSIDE RECORDS SUMMARY | 2025-07-21 10:44 | XMS RPT_ITS | CCD ---
Author Organization [facility] Care Team Providers Care Hot Braider Name Role Phone CHEMO GODINEZ Attending Unavailable CHEMO GODINEZ Primary Care Unavailable CHEMO GODINEZ Admitting Unavailable Dr. Willie Pitts Primary Care Provider [phone] Dr. Willie Pitts Referring Provider [phone] Kvng Parrish Attending Provider Mani LOG SCALER, LOG SCALER-C Joelle Attending Provider Dr. Willie Pitts Primary Care Provider Dr. Willie Pitts Referring Provider Dr. Kvng Parrish Attending Provider [phone] Femi, Chiquis Primary Care Unavailable Mani LOG SCALER, Joelle Attending Unavailable Femi, Chiquis Referring Unavailable Femi, Chiquis Primary Care Unavailable Femi, Chiquis Attending Unavailable Femi, Chiquis Referring Unavailable Femi, Chiquis Primary Care Unavailable Femi, Chiquis Attending Unavailable Femi, Chiquis Referring Unavailable Femi, Chiquis Primary Care Unavailable Mani LOG SCALER, Joelle Attending Unavailable Femi, Chiquis Referring Unavailable Willie Pitts Referring Unavailable Mani LOG SCALER, Joelle Attending Unavailable Femi, Chiquis Primary Care Unavailable Femi LOG SCALER-C, Chiquis Primary Care Provider Femi LOG SCALER-C, Chiquis Referring Provider [phone] Mani LOG SCALER-C, Joelle Attending Provider Femi LOG SCALER-C, Chiquis Attending Provider Allergies Allergy Classification Reported Allergen(s) Allergy Type Date of Onset Reaction(s) Facility (8 sources) Lisinopril Drug Allergy 11-27-2021 [facility] (1 source) Lisinopril Drug Allergy 12-05-2024 [facility] Repository Medications Current Medications Medication Drug Class(es) Dates Sig (Normalized) Sig (Original) ascorbic acid 500 mg oral capsule (8 sources) Vitamin C Start: 11-21-2020 take 1 capsule by mouth once daily Ascorbic Acid (Vitamin C) 500 mg capsule Active 500 mg PO DAILY November 21, 2020 1:00am aspirin 81 mg delayed release oral tablet (8 sources) Platelet Aggregation Inhibitor, Nonsteroidal Anti-inflammatory Drug Start: 11-21-2020 take 1 tablet by mouth once daily Aspirin 81 mg tablet,delayed release (DR/EC) Active 81 mg PO DAILY November 21, 2020 1:00am glimepiride 4 mg oral tablet (8 sources) Sulfonylurea Start: 11-21-2020 take 1 tablet by mouth once daily Glimepiride 4 mg tablet Active 4 mg PO DAILY November 21, 2020 1:00am metFORMIN hydrochloride 850 mg oral tablet (8 sources) Biguanide Start: 11-21-2020 take 1 tablet by mouth three times daily Metformin 850 mg tablet Active 850 mg PO THREE TIMES A DAY November 21, 2020 1:00am montelukast 10 mg oral tablet (8 sources) Leukotriene Receptor Antagonist Start: 11-21-2020 take 1 tablet by mouth once daily Montelukast 10 mg tablet Active 10 mg PO DAILY November 21, 2020 1:00am [place] 9-Zpp-Sxd-Fish Oil (Fish Oil) 60-90-500 mg capsule (8 sources) Start: 11-21-2020 take 1 capsule by mouth once daily [place] 8-Hop-Hpq-Fish Oil (Fish Oil) 60-90-500 mg capsule Active 1 CAP PO DAILY November 21, 2020 10:34am Start: 11-21-2020 End: 02-29-2024 [place] 7-Ixt-Ply-Fish Oil (Fi sh Oil) 60-90-500 mg capsule Discontinued 1 NMA PO DAILY November 21, 2020 1:00am February 29, 2024 8:21am Start: 11-21-2020 take 1 capsule by mo [facility] once daily [place] 0-Uuc-Keh-Fish Oil (Fish Oil) 60-90-500 mg capsule Active 1 CAP PO DAILY November 21, 2020 1:00am SITagliptin 100 mg oral tablet (1 source) Dipeptidyl Peptidase 4 Inhibitor Start: 02-29-2024 take 1 tablet by mouth once daily Sitagliptin Phosphate (Januvia) 100 mg tablet Active 100 mg PO DAILY February 29, 2024 12:00am terazosin 1 mg oral capsule (8 sources) alpha-Adrenergic Oxana Start: 05-09-2021 take 1 capsule by mouth at bedtime Terazosin 1 mg capsule Active 1 mg PO AT BEDTIME May 09, 2021 12:00am Completed/Discontinued Medications Medication Drug Class(es) Dates Sig (Normalized) Sig (Original) acetaminophen 325 mg / HYDROcodone bitartrate 5 mg oral tablet (8 sources) Opioid Agonist Start: 02-02-2021 End: 02-05-2021 Hydrocodone-Acetami nophen 1 TABLET tablet Discontinued 1 {tbl} PO EVERY 6 HOURS NEEDED as needed for Pain 10 February 02, 2021 February 04, 2021 12:00am February 05, 2021 12:03am Start: 02-02-2021 End: 02-05-2021 take 1 tablet by mouth every six hours as needed Hydrocodone-Acetaminophen Discontinued 1 TABLET PO EVERY 6 HOURS NEEDED 08 18February 02, 2021 February 05, 2021 12:03am ALPRAZolam 1 mg oral tablet (8 sources) Benzodiazepine Start: 05-09-2021 End: 02-29-2024 take 1-2 mg by mouth twice daily Alprazolam 1 mg tablet Discontinued 1 - 2 mg PO TWICE A DAY May 09, 2021 12:00am February 29, 2024 8:20am doxepin hydrochloride 10 mg oral capsule (8 sources) Tricyclic Antidepressant Start: 06-12-2021 End: 02-29-2024 take 1 capsule by mouth at bedtime Doxepin 10 mg capsule Discontinued 10 mg PO AT BEDTIME June 12, 2021 12:00am February 29, 2024 8:21am levocetirizine dihydrochloride 5 mg oral tablet (8 sources) Histamine-1 Receptor Antagonist Start: 06-12-2021 End: 02-29-2024 take 1 tablet by mouth once daily Levocetirizine 5 mg tablet Discontinued 5 mg PO DAILY June 12, 2021 12:00am February 29, 2024 8:21am lisinopril 10 mg oral tablet (8 sources) Angiotensin Converting Enzyme Inhibitor Start: 11-21-2020 End: 04-16-2021 take 1 tablet by mouth once daily Lisinopril 10 mg tablet Discontinued 10 mg PO DAILY November 21, 2020 1:00am April 16, 2021 9:16pm predniSONE 20 mg oral tablet (8 sources) Start: 05-09-2021 End: 06-12-2021 take 3 tablets by mouth once daily Prednisone 20 MG tablet Discontinued 60 mg PO DAILY May 09, 2021 12:00am June 12, 2021 8:44am Start: 05-09-2021 End: 06-12-2021 take 60 mg by mouth once daily Prednisone Discontinued 60 MG PO DAILY May 09, 2021 12:00am June 12, 2021 8:44am Problems Problem Classification Problem Date Documented Da te Episodic/Chronic Diabetes mellitus with complications (1 source) Type 2 diabetes mellitus with other diabetic neurological complication; Translations: [Type 2 diabetes mellitus with other diabetic neurological complication] Onset: 01-27-2025 Chronic Diabetes mellitus without complication (8 sources) Diabetes mellitus; Translations: [Type 2 diabetes mellitus without complications] 11-22-2020 Chronic Disorders of lipid metabolism (8 sources) Hyperlipidemia; Translations: [Hyperlipidemia, unspecified] 11-22-2020 Chronic Essential hypertension (9 sources) Essential hypertension; Translations: [Essential (primary) hypertension] Onset: 07-20-2024 11-22-2020 Chronic Fever of unknown origin (2 sources) Fever, unspecified; Translations: [Fever, unspecified] Onset: 09-12-2020 Episodic Other hereditary and degenerative nervous system conditions (8 sources) Restless legs; Translations: [Restless legs syndrome] 06-12-2021 Chronic Other injuries and conditions due to external causes (8 sources) Angioedema; Translations: [Angioneurotic edema, initial encounter] 04-16-2021 Episodic Other nutritional; endocrine; and metabolic disorders (9 sources) Obesity; Translations: [Obesity, unspecified] 01-31-2021 Chronic Other upper respiratory infections (7 sources) Acute viral pharyngitis; Translations: [Acute pharyngitis, unspecified] 05-16-2022 Episodic Residual codes; unclassified (7 sources) Obstructive sleep apnea syndrome; Translations: [Obstructive sleep apnea (adult) (pediatric)] 05-20-2022 Chronic Comment on above: CPAP 13 cmH2O Residual codes; unclassified (5 sources) Obstructive sleep apnea (adult) (pediatric); Translations: [Obstructive sleep apnea (adult)(pediatric)] Chronic Unclassified (1 source) COVID-19; Translations: [COVID-19] Onset: 09-12-2020 Results Test Name Value Interpretation Reference Range Facility Hemoglobin A1con 01-16-2025 HbA1c (Bld) [Mass fraction] 9.2 % Normal <=5.6 [facility] Comment on above: Performed By: #### L [id number] #### [facility] [address] [place], [address] Hemoglobin A1c percentageOrd ered By: Chiquis Kahn on 01-16-2025 HbA1c (Bld) [Mass fraction] 9.2 % >5.7 [facility] Pulmonary Visit Reporton Pulmonary Visit Report [facility] [place] [address] [place] [address] OFFICE VISIT Date of Service: 12/05/24 MR#: [id number] Acct: [id number] Name: ANJELICA ROMERO Rep #: [id number] : 1950 Provider: DUNG Singleton Age/Sex: 74/M Location: [facility] Status: Signed Assessment and Plan Assessment and Plan (1) Obstructive sleep apnea syndrome: Status: Chronic Comment: CPAP 13 cmH2O Plan: He is using and benefiting from Pap therapy. No indication for titration study at this time. I anticipate that his leaks will reduce once he has replaced his interface. Contact the office for any new or worsening symptoms in the meantime. Follow-up in 1 year. (2) Obesity: Status: Chronic Qualifiers: Obesity type: due to excess calories Serious obesity comorbidity presence: with serious comorbidity Body mass index: BMI 34.0-34.9 Obesity classification: adult class 1 (BMI 30 - 34.9) Qualified Code(s): E66.09 - Other obesity due to excess calories; Z68.34 - Body mass index [BMI] 34.0-34.9, adult Plan: The patient has been working with his primary care provider on his weight control. It sounds as though he will be starting a weight loss medication in the very near future. I did discuss with him that after a 20% weight loss he may require lower pressure, however he is only on a CPAP of 13 cmH2O, which might be very comfortable even with significant weight loss. Plan Details Follow Up: 1 Year ([facility]) HPI 6 M FU Chief Complaint: Routine follow-up HPI Comments Details: This patient presents to the office today for follow-up of his obstructive sleep apnea. He is ambulatory and currently on room air. He has not recently been seen in the ED or urgent care for any respiratory illness. He has not required any antibiotics or prednisone for any breathing problems. He does have shortness of breath on exertion, however this has not progressed. He has an occasional cough productive of clear thick sputum. He denies any difficulty with hemoptysis. He denies any wheezing, chest tightness, chest pain or palpitations. He also denies any fever, chills or body aches. If you recall, he is a lifelong never smoker. He wakes up feeling rested refreshed with the use of his PAP device. He does admit that he has not gotten a new interface recently. However, he did contact the [employer] company and requested a replacement mask, interface and headgear. He notices that sometimes the water has run out by 5 AM. If this occurs, he typically will take the mask off and shut the machine off and lay back down for about an hour. He is not having difficulty with morning headaches. He is not requiring naps. He does report that he was approved for Ozempic. He anticipates starting the weight loss injection in the very near future. Compliance report for the past 30 days shows 100 % compliance with an average use of 5 hours and 47 minutes per night. Current setting is 13 cmH2O with a residual AHI of 3.1 events per hour. Leaks continue to be an issue. Intake Vital Signs 06/01/24 08:24 12/05/24 08:08 12/05/24 10:47 Height 5 ft 8 in 5 ft 8 in 5 ft 8 in Weight: 237 lb 240 lb BMI 36.0 36.5 BP 139/79 H 166/83 H Blood Pressure Location Lt brachial Lt brachial Position Sitting Sitting Respiration 18 18 Pulse 96 91 Pulse Source Monitor Monitor Temp 97.1 F L 97.4 F L Temperature Source Temporal Artery Temporal Artery Pulse Oximetry (%) 96 97 Oxygen Delivery Method room air room air Intake Visit Reasons: 6 M FU Chief Complaint: 6 month f/u DME Vendor: [employer] Is patient in pain?: No Allergies lisinopril Adverse Reaction (Verified 12/05/24 10:47) swelling Medications ???Medication ???Instructions ???Recorded ???Confirmed ???Type ascorbic acid (vitamin C) 500 mg 500 mg PO DAILY 11/21/20 12/05/24 History capsule aspirin 81 mg tablet,delayed 81 mg PO DAILY 11/21/20 12/05/24 History release glimepiride 4 mg tablet 4 mg PO DAILY 11/21/20 12/05/24 History metformin 850 mg tablet 850 mg PO TID 11/21/20 12/05/24 History montelukast 10 mg tablet 10 mg PO DAILY 11/21/20 12/05/24 History terazosin 1 mg capsule 1 mg PO QHS 05/09/21 12/05/24 History sitagliptin phosphate 100 mg 100 mg PO DAILY 02/29/24 12/05/24 History tablet (Januvia) Have you fallen in the past year?: No PFSH Medical History Hyperlipidemia Essential hypertension Diabetes mellitus Obesity Surgical History History of knee replacement Family History Other Cancer Heart disease Social History (more content not included)... Normal [facility] CBC W/Diff, Automatedon 06-16 Absolute Lymph 1.22 X10 3/uL Normal 0.83-4.51 [facility] Comment on above: Performed By: #### L 500.4050, L500.4100, L501.9910, L100.0100 #### [facility] [address] [place], [address] Absolute Neut 4.8 X10 3/uL Normal 2.0-7.7 [facility] Comment on above: Performed By: #### L 500.4050, L500.4100, L501.9910, L100.0100 #### [facility] [address] [place], [address] Basophils/100 WBC (Bld) 0.7 % Normal 0-1 [facility] Comment on above: Performed By: #### L 500.4050, L500.4100, L501.9910, L100.0100 #### [facility] [address] [place], [address] Eosinophils/100 WBC (Bld) 2.9 % Normal 0-5 [facility] Comment on above: Performed By: #### L 500.4050, L500.4100, L501.9910, L100.0100 #### [facility] [address] [place], [address] Erythrocyte distribution width (RBC) [Ratio] 12.7 % Normal 11.6-14.6 [facility] Comment on above: Performed By: #### L 500.4050, L500.4100, L501.9910, L100.0100 #### [facility] [address] [place], [address] Hematocrit (Bld) [Volume fraction] 41.8 % Normal 40-54 [facility] Comment on above: Performed By: #### L 500.4050, L500.4100, L501.9910, L100.0100 #### [facility] [address] [place], [address] Hemoglobin (Bld) [Mass/Vol] 14.4 g/dL Normal 13.0-16.5 [facility] Comment on above: Performed By: #### L 500.4050, L500.4100, L501.9910, L100.0100 #### [facility] [address] [place], [address] IG% 0.900 Normal 0.0-0.9 [facility] Comment on above: Result Comment: IG% - Immature Granulocytes (promyelocytes, myelocytes and metamyelocytes) > 1% indicates that a LEFT SHIFT is Present. Performed By: #### L 500.4050, L500.4100, L501.9910, L100.0100 #### [facility] [address] [place], [address] Lymphocytes/100 WBC (Bld) 17.8 % Low 19-41 [facility] Comment on above: Performed By: #### L 500.4050, L500.4100, L501.9910, L100.0100 #### [facility] [address] [place], [address] MCH (RBC) [Entitic mass] 32.4 pg High 27.0-32.0 [facility] Comment on above: Performed By: #### L 500.4050, L500.4100, L501.9910, L100.0100 #### [facility] [address] [place], [address] MCHC (RBC) [Mass/Vol] 34.4 g/dL Normal 32-36 [facility] Comment on above: Performed By: #### L 500.4050, L500.4100, L501.9910, L100.0100 #### [facility] [address] [place], [address] MCV (RBC) [Entitic vol] 94.1 fL High 80-94 [facility] Comment on above: Performed By: #### L 500.4050, L500.4100, L501.9910, L100.0100 #### [facility] [address] [place], [address] Monocytes/100 WBC (Bld) 8.0 % Normal 0-10 [facility] Comment on above: Performed By: #### L 500.4050, L500.4100, L501.9910, L100.0100 #### [facility] [address] [place], [address] Neutrophils/100 WBC (Bld) 69.7 % Normal 47-70 [facility] Comment on above: Performed By: #### L 500.4050, L500.4100, L501.9910, L100.0100 #### [facility] [address] [place], [address] Nucleated RBC (Bld) [#/Vol] 0 10*3/uL Normal 0-5 [facility] Comment on above: Performed By: #### L 500.4050, L500.4100, L501.9910, L100.0100 #### [facility] [address] [place], [address] Platelet mean volume (Bld) [Entitic vol] 9.8 fL Normal 6.2-12.0 [facility] Comment on above: Performed By: #### L 500.4050, L500.4100, L501.9910, L100.0100 #### [facility] [address] [place], [address] Platelets (Bld) [#/Vol] 184 10*3/uL Normal 150-450 [facility] Comment on above: Performed By: #### L 500.4050, L500.4100, L501.9910, L100.0100 #### [facility] [address] [place], [address] RBC (Bld) [#/Vol] 4.44 10*6/uL Low 4.6-6.2 [facility] Comment on above: Performed By: #### L 500.4050, L500.4100, L501.9910, L100.0100 #### [facility] [address] [place], [address] RDW SD 43.8 fl Normal 35.1-43.9 [facility] Comment on above: Performed By: #### L 500.4050, L500.4100, L501.9910, L100.0100 #### [facility] [address] [place], [address] WBC (Bld) [#/Vol] 6.9 10*3/uL Normal 4.4-11.0 [facility] Comment on above: Performed By: #### L 500.4050, L500.4100, L501.9910, L100.0100 #### [facility] [address] [place], [address] Comprehensive Metabolic Prof [facility] 06-27-2024 Albumin [Mass/Vol] 3.7 g/dL Normal 3.2-5.0 [facility] Comment on above: Performed By: #### L 500.4050, L500.4100, L501.9910, L100.0100 #### [facility] [address] [place], [address] Albumin/Globulin [Mass ratio] 1.0 {ratio} Normal 0.9-2.4 [facility] Comment on above: Performed By: #### L 500.4050, L500.4100, L501.9910, L100.0100 #### [facility] [address] [place], [address] ALK P 139 U/L High 45-117 [facility] Comment on above: Performed By: #### L 500.4050, L500.4100, L501.9910, L100.0100 #### [facility] [address] [place], [address] ALT [Catalytic activity/Vol] 25 U/L Normal 16-61 [facility] Comment on above: Performed By: #### L 500.4050, L500.4100, L501.9910, L100.0100 #### [facility] [address] [place], [address] AST [Catalytic activity/Vol] 14 U/L Low 15-37 [facility] Comment on above: Performed By: #### L 500.4050, L500.4100, L501.9910, L100.0100 #### [facility] [address] [place], [address] Bilirubin [Mass/Vol] 0.40 mg/dL Normal 0.20-1.00 [facility] Comment on above: Result Comment: For patients on eltrombopag therapy, use of Dimension [place] TBIL is not recommended. Performed By: #### L 500.4050, L500.4100, L501.9910, L100.0100 #### [facility] [address] [place], [address] BUN/CRE 13.3 RATIO Normal 10-20 [facility] Comment on above: Performed By: #### L 500.4050, L500.4100, L501.9910, L100.0100 #### [facility] [address] [place], [address] CA,Total 8.7 mg/dL Normal 8.5-10.1 [facility] Comment on above: Performed By: #### L 500.4050, L500.4100, L501.9910, L100.0100 #### [facility] [address] [place], [address] Chloride [Moles/Vol] 104 mmol/L Normal 98-107 [facility] Comment on above: Performed By: #### L 500.4050, L500.4100, L501.9910, L100.0100 #### [facility] [address] [place], [address] CO2 [Moles/Vol] 27.0 mmol/L Normal 21.0-32.0 [facility] Comment on above: Performed By: #### L 500.4050, L500.4100, L501.9910, L100.0100 #### [facility] [address] [place], [address] Creatinine [Mass/Vol] 1.05 mg/dL Normal 0.70-1.30 [facility] Comment on above: Result Comment: The validity of the calculated GFR GFRAA in patients over 70 years has not been determined. Clinical correlation is essential. Performed By: #### L 500.4050, L500.4100, L501.9910, L100.0100 #### [facility] [address] [place], [address] EST GFR - AA 89 mL/min Normal >60 [facility] Comment on above: Result Comment: Afri can [place] GFR Calc Performed By: #### L 500.4050, L500.4100, L501.9910, L100.0100 #### [facility] [address] [place], [address] GAP 4 Low 5-15 [facility] Comment on above: Performed By: #### L 500.4050, L500.4100, L501.9910, L100.0100 #### [facility] [address] [place], [address] GFR/1.73 sq M.predicted among non-blacks MDRD (S/P/Bld) [Vol rate/Area] 73 mL/min/{1.73_m2} Normal >60 [facility] Comment on above: Result Comment: Non- GFR Calc Performed By: #### L 500.4050, L500.4100, L501.9910, L100.0100 #### [facility] [address] [place], [address] Globulin (S) [Mass/Vol] 3.6 g/dL Normal 2.2-4.2 [facility] Comment on above: Performed By: #### L 500.4050, L500.4100, L501.9910, L100.0100 #### [facility] [address] [place], [address] Glucose [Mass/Vol] 293 mg/dL High 74-106 [facility] Comment on above: Result Comment: Gluc ose result greater than or equal to 200 mg/dL suggests DIABETES MELLITUS per A.D.A. criteria. Performed By: #### L 500.4050, L500.4100, L501.9910, L100.0100 #### [facility] [address] [place], [address] Potassium [Moles/Vol] 4.2 mmol/L Normal 3.5-5.1 [facility] Comment on above: Performed By: #### L 500.4050, L500.4100, L501.9910, L100.0100 #### [facility] [address] [place], [address] Sodium [Moles/Vol] 135 mmol/L Low 136-145 [facility] Comment on above: Performed By: #### L 500.4050, L500.4100, L501.9910, L100.0100 #### [facility] [address] [place], [address] T PROT 7.3 g/dL Normal 6.4-8.2 [facility] Comment on above: Performed By: #### L 500.4050, L500.4100, L501.9910, L100.0100 #### [facility] [address] [place], [address] Urea nitrogen [Mass/Vol] 14 mg/dL Normal 7-18 [facility] Comment on above: Performed By: #### L 500.4050, L500.4100, L501.9910, L100.0100 #### [facility] [address] [place], [address] Lipid Profileon 06-27-2024 Cholesterol [Mass/Vol] 157 mg/dL Normal 200 [facility] Comment on above: Result Comment: <200 mg/dL Desirable 200-240 mg/dL Borderline >240 mg/dL High Risk Performed By: #### L 500.4050, L500.4100, L501.9910, L100.0100 #### [facility] [address] [place], [address] Cholesterol in HDL [Mass/Vol] 49 mg/dL Normal [facility] Comment on above: Result Comment: The drugs N-Acetylcysteine and Metamizole may falsely depress this assay. Reference Range HDL <40 mg/dL Low HDL Cholesterol HDL >or= 60 mg/dL High HDL Cholesterol Performed By: #### L 500.4050, L500.4100, L501.9910, L100.0100 #### [facility] [address] [place], [address] Cholesterol in LDL [Mass/Vol] 89 mg/dL Normal 0-130 [facility] Comment on above: Performed By: #### L 500.4050, L500.4100, L501.9910, L100.0100 #### [facility] [address] [place], [address] Cholesterol in VLDL [Mass/Vol] 19 mg/dL Normal 5-40 [facility] Comment on above: Performed By: #### L 500.4050, L500.4100, L501.9910, L100.0100 #### [facility] Laboratory [address] [place], [address] Triglyceride [Mass/Vol] 97 mg/dL Normal [facility] Comment on above: Result Comment: The drugs N-Acetylcysteine and Metamizole may falsely depress this assay. Serum Triglycerides Reference Interval Normal <150 mg/dL Borderline high 150 - 199 mg/dL High 200 - 499 mg/dL Very High > or = 500 mg/dL Performed By: #### L 500.4050, L500.4100, L501.9910, L100.0100 #### [facility] [address] [place], [address] PSA,Total - Annual Screenon 06-27-2024 PSA,TOT SCREEN 1.29 ng/mL Normal 0.00-4.00 [facility] Comment on above: Result Comment: This test was performed using the TPSA assay method for the [employer] chemistry system. Values obtained with different assay methods cannot be used interchangably. When changing PSA assays in the course of monitoring a patient, additional sequential testing should be carried out to confirm baseline values. Performed By: #### L 500.4050, L500.4100, L501.9910, L100.0100 #### [facility] [address] [place], [address] Pulmonary Visit Reporton Pulmonary Visit Report [facility] [address] [place] [address] OFFICE VISIT Date of Service: 06/01/24 MR#: [id number] Acct: [id number] Name: ANJELICA ROMERO Rep #: [id number] : 1950 Provider: DUNG Singleton Age/Sex: 74/M Location[facility] Status: Signed Assessment and Plan Assessment and Plan (1) Obstructive sleep apnea syndrome: Status: Chronic Comment: CPAP 13 cmH2O Plan: He is using and benefiting from Pap therapy. No indication for titration study at this time. Compliance report indicates continued leaks, however AHI remains under control. I will send a request over to the [employer] to provide him with a large chinstrap. Contact the office for any new or worsening symptoms in the meantime. Follow-up in 6 months to evaluate if leaks have been controlled with the use of a chinstrap. (2) Obesity: Status: Chronic Qualifiers: Body mass index: BMI 34.0-34.9 Obesity classification: adult class 1 (BMI 30 - 34.9) Obesity type: due to excess calories Serious obesity comorbidity presence: with serious comorbidity Qualified Code(s): E66.09 - Other obesity due to excess calories; Z68.34 - Body mass index [BMI] 34.0-34.9, adult Plan: Continue to encourage weight loss. Plan Details Follow Up: 6 Months ([facility]) HPI 3 M FU Chief Complaint: Sleep apnea HPI Comments Details: This patient presents to the office today for follow-up of his obstructive sleep apnea. He is ambulatory and currently on room air. He has not recently been seen in the ED or urgent care for any respiratory illness. He has not required any antibiotics or prednisone for any breathing problems. He does have shortness of breath on exertion, however this has not progressed. He has an occasional cough productive of clear thick sputum. He denies any difficulty with hemoptysis. He denies any wheezing, chest tightness, chest pain or palpitations. He also denies any fever, chills or body aches. He reports excellent compliance with PAP therapy. He is having difficulty with mask leaks. He reports seeing a red upside down smile face on his machine. He is using a nasal interface. He has requested a chinstrap, that was previously ordered by our practice. After not hearing from the [employer], he contacted them and requested it. They acknowledge that there was an order but had not sent him out the chinstrap. Once he received the chinstrap, unfortunately, he found that it is the wrong size. He contacted [employer] once again requesting to have a large chinstrap. He is having difficulty with dry mouth. He is not requiring naps. He is not nodding off to sleep unintentionally. He is not having excessive nocturia. If you recall, he is a lifelong never smoker. Compliance report for the past 30 days shows 87% compliance with an average use of 6 hours and 30 minutes per night. Current setting is 13 cmH2O with a residual AHI of 2.2 events per hour. Leaks continue to be an issue. Intake Vital Signs 02/29/24 07:27 06/01/24 08:24 Height 5 ft 8 in 5 ft 8 in Weight: 236 lb 237 lb BMI 35.9 36.0 BP 159/84 H 139/79 H Blood Pressure Location Lt brachial Lt brachial Position Sitting Sitting Respiration 20 H 18 Pulse 95 96 Pulse Source Monitor Monitor Temp 97.5 F L 97.1 F L Temperature Source Temporal Artery Temporal Artery Pulse Oximetry (%) 95 96 Oxygen Delivery Method room air room air Intake Visit Reasons: 3 M FU Chief Complaint: 6 week f/u Rn Shift Mgr Required: No DME Vendor: [employer] Accompanied by: Self Allergies lisinopril Adverse Reaction (Verified 06/01/24 13:48) swelling Medications ???Medication ???Instructions ???Recorded ???Confirmed ???Type ascorbic acid (vitamin C) 500 mg 500 mg PO DAILY 11/21/20 06/01/24 History capsule aspirin 81 mg tablet,delayed 81 mg PO DAILY 11/21/20 06/01/24 History release glimepiride 4 mg tablet 4 mg PO DAILY 11/21/20 06/01/24 History metformin 850 mg tablet 850 mg PO TID 11/21/20 06/01/24 History montelukast 10 mg tablet 10 mg PO DAILY 11/21/20 06/01/24 History terazosin 1 mg capsule 1 mg PO QHS 05/09/21 06/01/24 History sitagliptin phosphate 100 mg 100 mg PO DAILY 02/29/24 06/01/24 History tablet (Januvia) Have you fallen in the past year?: No [facility] Medical History Hyperlipidemia Essential hypertension Diabetes mellitus Obesity Surgical History History of knee replacement Family History Other Cancer Heart disease Social History household members: none Smoking Status: Never smoker subst (more content not included)... Normal [facility] Pulmonary Visit Reporton Pulmonary Visit Report [facility] [address] [place] [address] OFFICE VISIT Date of Service: 02/29/24 MR#: [id number] Acct: [id number] Name: ANJELICA ROMERO Rep #: [id number] : 1950 Provider: DUNG Singleton Age/Sex: 74/M Location: [facility] Status: Signed Assessment and Plan Assessment and Plan (1) Obstructive sleep apnea syndrome: Status: Chronic Plan: Deteriorated. The patient is struggling with dry mouth. I suspect that he is probably opening his mouth while using his nasal interface. I am going to order a chinstrap. Plan to follow-up with the patient in 3 months to evaluate his compliance report and symptoms. If we are not able to correct this problem by his office visit we will consider alternatives. I offered other suggestions, such as, going back to the oral hybrid interface and utilizing a cloth liner. I instructed the patient that if he decides to be evaluated for the inspire device he would require a more recent sleep study, this can be discussed further at his follow-up visit. The process/procedure for the inspire device was discussed thoroughly with the patient. He is still considering that option.. We will first proceed with trying to correct the dry mouth with the use of the chinstrap. Follow-up in the office in 3 months. Contact the office with any new or worsening symptoms in the meantime. (2) Obesity: Status: Chronic Qualifiers: Obesity type: due to excess calories Serious obesity comorbidity presence: with serious comorbidity Body mass index: BMI 34.0-34.9 Obesity classification: adult class 1 (BMI 30 - 34.9) Qualified Code(s): E66.09 - Other obesity due to excess calories; Z68.34 - Body mass index [BMI] 34.0-34.9, adult Plan: Continue to encourage weight loss. Plan Details Follow Up: 3 Months ([facility]) HPI 1 Y FU Chief Complaint: Dry mouth HPI Comments Details: This patient presents to the office today for annual review of his obstructive sleep apnea. He is ambulatory and currently on room air. He has not recently been seen in the ED or urgent care for any respiratory illness. He has not required any antibiotics or prednisone for any breathing problems. He denies any difficulty with shortness of breath, with the exception of exertion. He does have a dry cough. Rarely it is productive, when productive it is producing clear-colored sputum. He denies any wheezing, chest tightness, chest pain or palpitations. He denies any fever, chills or body aches. Review recall, he is a lifelong never smoker. The patient reports that he is dealing with dry mouth. He states that he also has pretty bad receding gums. He recently had a procedure to the upper gums. He noticed that the dry mouth was significantly worse after that initial procedure. It has been so dry that it has been difficult to wear his PAP device. He states that he is scheduled to have the lower gums taken care of next week. He states that he was told if he did not get this done he was going to have to have a root canal. He is currently utilizing nasal hybrid mask, if you recall previously was using an oral hybrid mask but had an allergic reaction to the interface. The patient also reports that he goes to bed around 930 or 10 PM. He is able to be compliant for about 3 to 4 hours, then wakes up and takes it off. He then sleeps until about 5 AM. He is not requiring naps. He is not nodding off to sleep unintentionally. He would like to consider alternatives, such as the inspire device. Compliance report for the past 30 days shows 83% compliance with an average use of 3 hours and 21 minutes per night. Current setting is 13 cm of water with residual AHI of of 1.6 events per hour. Leaks do appear to be somewhat of an issue. Intake Vital Signs 02/25/23 06:22 04/07/23 14:24 02/29/24 07:27 Height 5 ft 8 in 5 ft 8 in 5 ft 8 in Weight: 236 lb BMI 35.9 BP 159/84 H Blood Pressure Location Lt brachial Position Sitting Respiration 20 H Pulse 95 Pulse Source Monitor Temp 97.5 F L Temperature Source Temporal Artery Pulse Oximetry (%) 95 Oxygen Delivery Method room air Intake Visit Reasons: 1 Y FU Chief Complaint: 6 week f/u Rn Shift Mgr Required: No JACK Vendor: [employer] Accompanied by: Self Allergies lisinopril Adverse Reaction (Verified 02/29/24 08:20) swelling Medications ascorbic acid (vitamin C) 500 mg capsule 500 mg PO DAILY 11/21/20 [History Confirmed 02/29/24] aspirin 81 mg tablet,delayed release 81 mg PO DAILY 11/21/20 [History Confirmed 02/29/24] glimepiride 4 mg tablet 4 mg PO DAILY 11/21/20 [History Confirmed 02/29/24] metformin 850 mg tablet 850 mg PO TID 11/21/20 [History Confirmed 02/29/24] montelukast 10 mg tablet 10 mg PO DAILY 11/21/20 [History Confirmed 02/29/24] terazosin 1 mg capsule 1 m (more content not included)... Normal [facility] Absolute lymphocyte counton 04-11-2022 Lymphocytes Auto (Unsp spec) [#/Vol] 1.73 10*3/uL 0.83-4.51 [facility] Work Phone: Basophil percentageon 2021 Basophils/100 WBC (Bld) 0.7 % 0-1 [facility] Work Phone: Bilirubin [Mass/Vol] 0.60 mg/dL 0.20-1.00 [facility] Work Phone: Comment on above: For patients on eltr ombopag therapy, use of Dimension [place] TBIL is not recommended. Chloride [Moles/Vol] 106 mmol/L 98-107 [facility] Work Phone: Cholesterol [Mass/Vol] 179 mg/dL <200 [facility] Work Phone: Comment on above: <200 mg/dL Desirable 200-240 mg/dL Borderline >240 mg/dL High Risk Eosinophils/100 WBC (Bld) 3.2 % 0-5 [facility] Work Phone: Glucose [Mass/Vol] 163 mg/dL 74-106 [facility] Work Phone: Comment on above: Fasting Glucose resu lt greater than or equal to 126 mg/dL suggests DIABETES MELLITUS per A.D.A. criteria. Neutrophils (Bld) [#/Vol] 4.7 10*3/uL 2.0-7.7 [facility] Work Phone: Neutrophils/100 WBC (Bld) 63.8 % 47-70 [facility] Work Phone: Potassium [Moles/Vol] 4.3 mmol/L 3.5-5.1 [facility] Work Phone: Protein [Mass/Vol] 7.8 g/dL 6.4-8.2 [facility] Work Phone: Sodium [Moles/Vol] 138 mmol/L 136-145 [facility] Work Phone: Triglyceride [Mass/Vol] 83 mg/dL <199 [facility] Work Phone: Comment on above: The drugs N-Acetylcy steine and Metamizole may falsely depress this assay.Serum Triglycerides Reference Interval Normal <150 mg/dL Borderline high 150 - 199 mg/dL High 200 - 499 mg/dL Very High > or = 500 mg/dL WBC (Bld) [#/Vol] 7.3 10*3/uL 4.4-11.0 [facility] Work Phone: Blood erythrocytes count (nu mber/volume)on 04-11-2022 RBC (Bld) [#/Vol] 4.69 10*6/uL 4.6-6.2 [facility] Work Phone: Blood hemoglobin measurement (mass/volume)on 04-11-2022 Hemoglobin (Bld) [Mass/Vol] 15.1 g/dL 13.0-16.5 [facility] Work Phone: Blood lymphocytes/100 leukoc yteson 04-11-2022 Lymphocytes/100 WBC (Bld) 23.8 % 19-41 [facility] Work Phone: Blood monocytes/100 leukocyt eson 04-11-2022 Monocytes/100 WBC (Bld) 8.0 % 0-10 [facility] Work Phone: Blood platelet mean volumeon 04-11-2022 Platelet mean volume (Bld) [Entitic vol] 9.6 fL 6.2-12.0 [facility] Work Phone: Determination of erythrocyte mean corpuscular volume (MCV)on 04-11-2022 MCV (RBC) [Entitic vol] 92.1 fL 80-94 [facility] Work Phone: Hematocrit Auto (Bld) [Volum e fraction]on 04-11-2022 Hematocrit (Bld) [Volume fraction] 43.2 % 40-54 [facility] Work Phone: Laboratory - Chemistry and C hemistry - challengeon 04-11-2022 ALP [Catalytic activity/Vol] 77 U/L 45-117 [facility] Work Phone: ALT [Catalytic activity/Vol] 25 U/L 16-61 [facility] Work Phone: CO2 [Moles/Vol] 27.0 mmol/L 21.0-32.0 [facility] Work Phone: Globulin (S) [Mass/Vol] 3.8 g/dL 2.2-4.2 [facility] Work Phone: Urea nitrogen/Creatinine [Mass ratio] 15.7 mg/mg 10-20 [facility] Work Phone: Laboratory - Hematology and Cell countson 04-11-2022 Erythrocyte distribution width (RBC) [Entitic vol] 41.7 fL 35.1-43.9 [facility] Work Phone: Erythrocyte distribution width (RBC) [Ratio] 12.5 % 11.6-14.6 [facility] Work Phone: Immature granulocytes/100 WBC (Bld) 0.500 % 0.0-0.9 [facility] Work Phone: Comment on above: IG% - Immature Granu locytes (promyelocytes, myelocytes and metamyelocytes) > 1% indicates that a LEFT SHIFT is Present. MCH (RBC) [Entitic mass] 32.2 pg 27.0-32.0 [facility] Work Phone: Nucleated RBC/100 WBC (Bld) [Ratio] 0 % 0-5 [facility] Work Phone: MCHC Auto (RBC) [Mass/Vol]on 04-11-2022 MCHC (RBC) [Mass/Vol] 35.0 g/dL 32-36 [facility] Work [facility]: No Panel Informationon 04-11 Estimated GFR (MDRD) Amer 86 mL/min >60 [facility] Work Phone: Comment on above: GFR Calc Estimated GFR (MDRD) Non-Af Amer 71 mL/min >60 [facility] Work Phone: Comment on above: Non- GFR Calc Prostate Specific Antigen Screen 1.19 ng/mL 0.00-4.00 [facility] Work Phone: Comment on above: This test was perfor med using the TPSA assay method for [employer] chemistry system. Values obtained with differentassay methods cannot be used interchangably.When changing PSA assays in the course of monitoring apatient, additional sequential testing should be carriedout to confirm baseline values. Platelets bldon 04-11-2022 Platelets (Bld) [#/Vol] 182 10*3/uL 150-450 [facility] Work Phone: Serum or plasma albumin roxana urement (mass/volume)on 04-11-2022 Albumin [Mass/Vol] 4.0 g/dL 3.2-5.0 [facility] Work Phone: Serum or plasma albumin/glob ulin mass ratioon 04-11-2022 Albumin/Globulin [Mass ratio] 1.1 {ratio} 0.9-2.4 [facility] Work Phone: Serum or plasma calcium roxana urement (mass/volume)on 04-11-2022 Calcium [Mass/Vol] 9.0 mg/dL 8.5-10.1 [facility] Work Phone: Serum or plasma cholesterol in HDL measurement (mass/volume)on 04-11-2022 Cholesterol in HDL [Mass/Vol] 52 mg/dL >40 [facility] Work Phone: Comment on above: The drugs N-Acetylcy steine and Metamizole may falsely depress this assay. Reference Range HDL <40 mg/dL Low HDL Cholesterol HDL >or= 60 mg/dL High HDL Cholesterol Serum or plasma cholesterol in VLDL measurement (mass/volume)on 04-11-2022 Cholesterol in VLDL [Mass/Vol] 17 mg/dL 5-40 [facility] Work Phone: Serum or plasma creatinine m easurement (mass/volume)on 04-11-2022 Creatinine [Mass/Vol] 1.08 mg/dL 0.70-1.30 [facility] Work Phone: Comment on above: The validity of the calculated GFR & GFRAA in patients over 70 years has not been determined. Clinical correlation is essential. Serum or plasma low density lipoprotein (LDL) cholesterol measurement (mass/volume)on 04-11-2022 Cholesterol in LDL [Mass/Vol] 110 mg/dL 0-130 [facility] Work Phone: Serum or plasma urea nitroge n measurement (mass/volume)on 04-11-2022 Urea nitrogen [Mass/Vol] 17 mg/dL 7-18 [facility] Work Phone: Thin prep Papanicolaou smear with manual screeningon 04-11-2022 Thin prep Papanicolaou smear with manual screening 13 U/L 15-37 [facility] Work Phone: Thin prep Papanicolaou smear with manual screening 5 5-15 [facility] Work Phone: CBCon 06-12-2021 Absolute nRBC <0.01 Normal <0.01 [facility] Comment on above: Performed By: #### F ERR, IRON, CBC #### [facility] [employer] [address] [place], [place] [address] Erythrocyte distribution width (RBC) [Ratio] 12.1 % Normal 11.5-15.0 [facility] Comment on above: Performed By: #### F ERR, IRON, CBC #### [facility] [employer] [address] [place], [place] [address] Hematocrit (Bld) [Volume fraction] 44.0 % Normal 39.0-51.0 [facility] Comment on above: Performed By: #### F ERR, IRON, CBC #### [facility] [employer] [address] [place], [place] [address] Hemoglobin (Bld) [Mass/Vol] 15.3 g/dL Normal 13.0-17.0 [facility] Comment on above: Performed By: #### F ERR, IRON, CBC #### [place] [id number] MCH 31.9 pG Normal 26.0-34.0 [facility] Comment on above: Performed By: #### F ERR, IRON, CBC #### [place] [address] MCHC (RBC) [Mass/Vol] 34.8 g/dL Normal 30.5-36.0 [facility] Comment on above: Performed By: #### F ERR, IRON, CBC #### [place] [address] MCV (RBC) [Entitic vol] 91.7 fL Normal 80.0-100.0 [facility] Comment on above: Performed By: #### F ERR, IRON, CBC #### [place] [address] Platelet mean volume (Bld) [Entitic vol] 11.2 fL Normal 9.0-12.7 [facility] Comment on above: Performed By: #### F ERR, IRON, CBC #### [place] [address] Platelets (Bld) [#/Vol] 186 10*3/uL Normal 150-400 [facility] Comment on above: Performed By: #### F ERR, IRON, CBC #### [place] [address] RBC (Bld) [#/Vol] 4.80 10*6/uL Normal 4.20-6.00 [facility] Comment on above: Performed By: #### F ERR, IRON, CBC #### [place] [address] WBC (Bld) [#/Vol] 6.42 10*3/uL Normal 3.70-11.00 [facility] Comment on above: Performed By: #### F ERR, IRON, CBC #### [place] [address] Ferritinon 06-12-2021 Ferritin [Mass/Vol] 200.0 ng/mL Normal 30.3-565.7 [facility] Comment on above: Performed By: #### F ERR, IRON, CBC #### [place] [address] Iron and TIBCon 06-12-2021 Iron [Mass/Vol] 140 ug/dL Normal 41-186 [facility] Comment on above: Performed By: #### F ERR, IRON, CBC #### [place] [address] TIBC 279 ug/dL Normal 232-386 [facility] Comment on above: Performed By: #### F ERR, IRON, CBC #### [place] [address] Transferrin Saturatn 50 % Normal 15-57 [facility] Comment on above: Performed By: #### F ERR, IRON, CBC #### [place] [address] CORONAVIRUS PCR [CCL]on 08-18 COVID 19 Result LOG SCALER Positive Abnormal [facility] Comment on above: Result Comment: Posi tive for COVID19 (SARS CoV2) by PCR.(*) This test was developed and its performance characteristics determined by [facility]. This test has been authorized by FDA under an Emergency Use Authorization (EUA). This test has been validated in accordance with the FDA's Guidance Document Policy for Diagnostics Testing in Laboratories Certified to Perform High Complexity Testing under CLIA prior to Emergency use Authorization for Coronavirus Disease 2019 during the Public Health Emergency issued on January 14, 2020. [facility] [address] [place] [address] Reese Cortes III, M.D. [id number] Performed By: #### 2 [id number] #### [facility],[address] [place] [address] COVID 19 Source LOG SCALER Nasopharyngeal Swab Normal [facility] Comment on above: Result Comment: Jayjay ected on 09/13 AT 1737: Previously reported as LOG SCALER SWAB Performed By: #### 2 [id number] #### [facility],[address] [place] [address] Coronavirus 2019on 0 COVID 19 Source LOG SCALER Normal [facility] Comment on above: Result Comment: Naso pharyngeal Swab Called to and read back by: Hiram Edwards Corrected on 09/14 AT 0457: Previously reported as LOG SCALER SWAB Hospital 09/14/20 0449 Jose R Lorenzana Corrected on 09/14 AT 0457: Previously reported as LOG SCALER SWAB Performed By: #### C OVID #### [facility] Reference [address] [place] [id number] COVID 19 Result LOG SCALER Abnormal Negative for COVID19 (SARS CoV2) by PCR. [facility] Comment on above: Result Comment: Posi tive for This test was developed and its performance characteristics determined by [facility]'s [facility]. This test has been authorized by FDA under an Emergency Use Authorization (EUA). This test has been validated in accordance with the FDA's Guidance Document Policy for Diagnostics Testing in Laboratories Certified to Perform High Complexity Testing under CLIA prior to Emergency use Authorization for Coronavirus Disease 2019 during the Public Health Emergency issued on January 14, 2020. COVID19 (SARS This test was developed and its performance characteristics determined by [facility]. This test has been authorized by FDA under an Emergency Use Authorization (EUA). This test has been validated in accordance with the FDA's Guidance Document Policy for Diagnostics Testing in Laboratories Certified to Perform High Complexity Testing under CLIA prior to Emergency use Authorization for Coronavirus Disease 2019 during the Public Health Emergency issued on January 14, 2020. CoV2) by This test was developed and its performance characteristics determined by [facility]. This test has been authorized by FDA under an Emergency Use Authorization (EUA). This test has been validated in accordance with the FDA's Guidance Document Policy for Diagnostics Testing in Laboratories Certified to Perform High Complexity Testing under CLIA prior to Emergency use Authorization for Coronavirus Disease 2019 during the Public Health Emergency issued on January 14, 2020. PCR.(*) This test was developed and its performance characteristics determined by [facility]. This test has been authorized by FDA under an Emergency Use Authorization (EUA). This test has been validated in accordance with the FDA's Guidance Document Policy for Diagnostics Testing in Laboratories Certified to Perform High Complexity Testing under CLIA prior to Emergency use Authorization for Coronavirus Disease 2019 during the Public Health Emergency issued on January 14, 2020. Performed By: #### C OVID #### [facility] Reference [address], [place] [address] Vital Signs Date Time Vital Sign Value Performing Clinician Ryan priest 12-05-2024 10:47-0500 Body height 172.72 cm Chiquis Kahn LOG SCALER-C Work Phone: [facility] 12-05-2024 10:47-0500 Body mass index (BMI) [Ratio] 36.5 kg/m2 Chiquis Kahn LOG SCALER-C Work Phone: [facility] 12-05-2024 10:47-0500 Body temperature 97.4 [degF] Chiquis Kahn LOG SCALER-C Work Phone: [facility] 12-05-2024 10:47-0500 Body weight 108.86 kg Chiquis Kahn LOG SCALER-C Work Phone: [facility] 12-05-2024 10:47-0500 Diastolic blood pressure 83 mm[Hg] Chiquis Kahn LOG SCALER-C Work Phone: [facility] 12-05-2024 10:47-0500 Heart rate 91 /min Chiquis Kahn LOG SCALER-C Work Phone: [facility] 12-05-2024 10:47-0500 Respiratory rate 18 /min Chiquis Kahn LOG SCALER-C Work Phone: [facility] 12-05-2024 10:47-0500 SaO2% (BldA) [Mass fraction] 97 % Chiquis Kahn LOG SCALER-C Work Phone: [facility] 12-05-2024 10:47-0500 Systolic blood pressure 166 mm[Hg] Chiquis Kahn LOG SCALER-C Work Phone: [facility] 04-07-2023 14:24-0400 Body height 172.[address] Willie Pitts Work Phone: [facility] 04-07-2023 14:24-0400 Body weight 107.[address] Willie Pitts Work Phone: [facility] 03-05-2023 11:06-0400 Body weight 107.[address] Willie Pitts Work Phone: [facility] 02-25-2023 13:56-0400 Body height 172.[address] Willie Pitts Work Phone: [facility] 02-25-2023 06:22-0400 Body mass index (BMI) [Ratio] 36 kg/m2 Dr. Willie Pitts Work Phone: [facility] 02-25-2023 06:22-0400 Body temperature 97.1 [degF] Dr. Willie Pitts Work Phone: [facility] 02-25-2023 06:22-0400 Body weight 107.[address] Willie Pitts Work Phone: [facility] 02-25-2023 06:22-0400 Diastolic blood pressure 95 mm[Hg] Dr. Willie Pitts Work Phone: [facility] 02-25-2023 06:22-0400 Heart rate 86 /min Dr. Willie Pitts Work Phone: [facility] 02-25-2023 06:22-0400 Respiratory rate 18 /min Dr. Willie Pitts Work Phone: [facility] 02-25-2023 06:22-0400 SaO2% (BldA) [Mass fraction] 98 % Dr. Willie Pitts Work Phone: [facility] 02-25-2023 06:22-0400 Systolic blood pressure 165 mm[Hg] Dr. Willie Pitts Work Phone: [facility] 02-12-2023 12:44-0400 Body weight 107.86 kg [facility] 01-28-2023 12:38-0400 Body height 172.72 cm [facility] 08-19-2022 07:54-0400 Body height 172.[address] Willie Pitts Work Phone: [facility] Work Phone: 08-19-2022 07:54-0400 Body mass index (BMI) [Ratio] 36.2 kg/m2 Dr. Willie Pitts Work Phone: [facility] Work Phone: 08-19-2022 07:54-0400 Body temperature 97.5 [degF] Dr. Willie Pitts Work Phone: [facility] Work Phone: 08-19-2022 07:54-0400 Body weight 108.[address] Willie Pitts Work Phone: [facility] Work Phone: 08-19-2022 07:54-0400 Diastolic blood pressure 92 mm[Hg] Dr. Willie Pitts Work Phone: [facility] Work Phone: 08-19-2022 07:54-0400 Heart rate 85 /min Dr. Willie Pitts Work Phone: [facility] Work Phone: 08-19-2022 07:54-0400 Respiratory rate 16 /min Dr. Willie Pitts Work Phone: [facility] Work Phone: 08-19-2022 07:54-0400 SaO2% (BldA) [Mass fraction] 95 % Dr. Willie Pitts Work Phone: [facility] Work Phone: 08-19-2022 07:54-0400 Systolic blood pressure 162 mm[Hg] Dr. Willie Pitts Work Phone: [facility] Work Phone: 05-20-2022 05:53-0400 Body height 172.[address] Willie Pitts Work Phone: [facility] Work Phone: 05-20-2022 05:53-0400 Body mass index (BMI) [Ratio] 34.7 kg/m2 Dr. Willie Pitts Work Phone: [facility] Work Phone: 05-20-2022 05:53-0400 Body temperature 98.7 [degF] Dr. Willie Pitts Work Phone: [facility] Work Phone: 05-20-2022 05:53-0400 Body weight 103.[address] Willie Pitts Work Phone: [facility] Work Phone: 05-20-2022 05:53-0400 Diastolic blood pressure 80 mm[Hg] Dr. Willie Pitts Work Phone: [facility] Work Phone: 05-20-2022 05:53-0400 Heart rate 109 /min Dr. Willie Pitts Work Phone: [facility] Work Phone: 05-20-2022 05:53-0400 Respiratory rate 16 /min Dr. Willie Pitts Work Phone: [facility] Work Phone: 05-20-2022 05:53-0400 SaO2% (BldA) [Mass fraction] 98 % Dr. Willie Pitts Work Phone: [facility] Work Phone: 05-20-2022 05:53-0400 Systolic blood pressure 122 mm[Hg] Dr. Willie Pitts Work Phone: [facility] Work Phone: 05-08-2022 11:25-0400 Body height 172.72 cm [facility] Work Phone: 05-08-2022 11:25-0400 Body mass index (BMI) [Ratio] 36 kg/m2 [facility] Work Phone: 05-08-2022 11:25-0400 Body temperature 97.9 [degF] [facility] Work Phone: 05-08-2022 11:25-0400 Body weight 107.5 kg [facility] Work Phone: 05-08-2022 11:25-0400 Diastolic blood pressure 92 mm[Hg] [facility] Work Phone: 05-08-2022 11:25-0400 Heart rate 105 /min [facility] Work Phone: 05-08-2022 11:25-0400 Respiratory rate 18 /min [facility] Work Phone: 05-08-2022 11:25-0400 SaO2% (BldA) [Mass fraction] 96 % [facility] Work Phone: 05-08-2022 11:25-0400 Systolic blood pressure 141 mm[Hg] [facility] Work Phone: Encounters Encounter Date Encounter Type Care Provider Facility Start: 01-16-2025 End: 01-16-2025 ambulatory Chiquis Kahn LOG SCALER-C Work Phone: [facility] Work Phone: Start: 01-16-2025 End: 01-16-2025 Patient encounter procedure Chiquis Kahn LOG SCALER-C -[place], Vijaya Forrest [facility] Start: 01-16-2025 End: 01-16-2025 ambulatory [facility] Facility:[facility] Start: 12-05-2024 End: 12-05-2024 Patient encounter procedure Joelle Singleton LOG SCALER-C -[facility] Work Phone: Start: 12-05-2024 End: 12-05-2024 ambulatory Allyn Femi Facility:[facility] Start: 06-27-2024 End: 06-27-2024 ambulatory [facility] Facility:[facility] Start: 06-01-2024 End: 06-01-2024 ambulatory Chiquiskenneth Kahn Facility:[facility] Start: 02-29-2024 End: 02-29-2024 ambulatory Willie Pitts Facility:[facility] Start: 04-07-2023 End: 04-15-[address] Willie Pitts Work Phone: [facility] Work Phone: Start: 04-07-2023 End: 04-15-[address] Willie Pitts Work Phone: [facility] Start: 03-05-2023 End: 03-15-[address] Willie Pitts Work Phone: [facility] Work Phone: Start: 03-05-2023 End: 03-15-[address] Willie Pitts Work Phone: [facility] Start: 02-25-2023 End: 02-25-[address] Willie Pitts Work Phone: [facility] Start: 02-12-2023 End: 02-13-2023 ambulatory [facility] Work Phone: Start: 02-12-2023 End: 02-13-2023 Discharged Recurring [facility] Start: 08-28-2022 End: 08-28-[address] Willie Pitts Work Phone: [facility] Work Phone: Start: 08-28-2022 End: 08-28-[address] Willie Pitts Work Phone: [facility] Start: 08-19-2022 End: 08-19-[address] [facility] Start: 06-03-2022 End: 06-03-[address] Willie Pitts [facility] Start: 05-20-2022 End: 05-20-[address] Willie Pitts Work Phone: [facility] Start: 05-08-2022 End: 05-08-2022 Emergency department patient visit [facility] Start: 04-11-2022 End: 04-11-2022 Patient encounter procedure [facility] Start: 09-12-2020 End: 09-12-2020 Patient encounter procedure CHEMO GODINEZ [facility] Procedures Date Procedure Procedure Detail Performing Clinician Start: 05-08-2022 X-ray of soft tissue of neck History of operative procedure on knee History of knee replacement Plan of Treatment Date Care Activity Detail Author Patient Education ED Pharyngitis, Viral [facility] Work Phone: Patient referral [facility] Work Phone: Payers Date Payer Category Payer Self-pay [id number] 2023 Medicare [id number] 1950 Unknown [id number] Unknown [id number] Unknown [id number] [id number] [id number] Unknown [id number] Unknown [id number] [id number] [id number] Unknown [id number] [id number] [id number] Unknown [id number] [id number] [id number] Social History Date Type Detail Facility Start: 11-27-2021 End: 02-25-2023 Tobacco smoking status RIIS Unknown if ever smoked [facility] Start: 1950 Sex Assigned At Male [facility] Start: 02-29-2024 Tobacco smoking stat [facility] Never smoked tobacco (finding) [facility] Start: 01-27-2025 Sex Male (finding) [facility] Mental Status Date Assessment Result Facility 05-08-2022 Cognitive function Level Of Cons ciousness Awake;Alert;Appropriate;Follow s Commands [facility] Work Phone: Evaluation note 12-05-2024 Note Date & Type Note Facility 12-05-2024 Evaluation note Diagnosis Onset Date Resolution Obesity chronic December 05, 2024 10:39am Obstructive sleep apnea syndrome chronic December 05 10:39am [facility] Work Phone: Evaluation note Note Date & Type Note Facility Evaluation note No assessment information availa [facility] Work Phone: Evaluation note Note Date & Type Note Facility Evaluation note Diagnosis Onset Date Obstructive sleep apnea syndrome [facility] Work Phone: Evaluation note Note Date & Type Note Facility Evaluation note Diagnosis Onset Date Obstructive sleep apnea syndrome chronic Obstructive sleep apnea syndrome [facility] Work Phone: Reason for referral (narrative) Note Date & Type Note Facility Reason for referral (narrative) No reason for referral information available [facility] Work Phone: Summary Purpose Family History Relationship Condition Age at Onset Recorded Date/T yuki Not Specified Cardiac disease Unknown Malignant neoplasm Unknown Advance Directives Advance Directive Response Recorded Date/ Time Living Will No May 09, 2021 11:50am [employer] Technician No May 09 11:50am Advance Directive Response Recorded Date/ Time Living Will No May 08, 2022 11:36am [employer] Maintenance Technician No May 08 11:36am Chief Complaint and Reason for Visit Chief Complaint NECK PAIN Chief Complaint NECK PAIN 6 M FU ALEAH Reason for Visit Obstructive sleep ap ashley syndrome Chief Complaint NECK PAIN 6 M FU ALEAH 3 M FU OBSTRUCTIVE SLEEP APNEA Reason for Visit Obstructive sleep ap ashley syndrome Obstructive sleep apnea syndrome Chief Complaint TYPE 2 DM Chief Complaint TYPE 2 DM 6 M FU TYPE 2 DM Reason for Visit Obstructive sleep ap ashley syndrome Chief Complaint TYPE 2 DM 6 M FU TYPE 2 DM TYPE 2 DM Reason for Visit Obstructive sleep ap ashley syndrome Chief Complaint Admit Date 6 M FU December 05, 2024 1 0:39am Reason for Visit Admit Date Obesity December 05, 2024 1 0:39am Obstructive sleep apnea syndrome December 05, 2024 10:39am Additional Source Comments (unrecognized sect ion and content) No Status Records FoundNo Status Records FoundNo Status Records FoundNo Status Records Found INFORMATION SOURCE (unrecogn ized section and content) DATE CREATED AUTHOR 09/14/2020 [facility] DATE CREATED AUTHOR AUTHOR'S ORGANIZ ATION 09/20/2020 [facility] DATE CREATED AUTHOR AUTHOR'S ORGANIZ ATION 01/10/2022 [facility] DATE CREATED AUTHOR AUTHOR'S ORGANIZ ATION 01/30/2025 [facility] Goals (unrecognized section and content) Goals may be documented in a n alternate sectionGoals may be documented in an alternate sectionGoals may be documented in an alternate sectionGoals may be documented in an alternate sectionGoals may be documented in an alternate sectionGoals may be documented in an alternate sectionGoals may be documented in an alternate sectionGoals may be documented in an alternate section Care Teams (unrecognized sec tion and content) Team Status: Active Member Role Status Dates Dr. Jay Murphy MD Family Provider Active Dr. Willie Pitts MD Primary Care Provider Active Team Status: Inactive Member Role Status Dates Dr. Willie Pitts MD Primary Care Provider Active Dr. Nacho Shin DO Attending Provider, Referring Jorje murphy Active Team Status: Inactive Member Role Status Dates Dr. Willie Pitts MD Primary Care Provider, Referring Provider Active Dr. Kvng Parrish DO Attending Provider Active Team Status: Active Member Role Status Dates Dr. Jay Murphy MD Family Provider Active Chiquis Femi , LOG SCALER-C Primary Care Provider Active Team Status: Inactive Member Role Status Dates Chiquis Femi , LOG SCALER-C Primary Care Provider Active Start: December 05, 2024 End: December 05, 2024 Chiquiskenneth Kahn , LOG SCALER-C Referring Provider Active St art: December 05, 2024 End: December 05, 2024 Joelle Singleton NP, LOG SCALER-C Attending Provider Active Start: December 05, 2024 End: December 05, 2024 Team Status: Inactive Member Role Status Dates Chiquiskenneth Kahn , LOG SCALER-C Primary Care Provider Active Start: January 16, 2025 End: January 16, 2025 Chiquiskenneth Kahn , LOG SCALER-C Attending Provider Active St art: January 16, 2025 End: January 16, 2025 Chiquis Femi , LOG SCALER-C Referring Provider Active St art: January 16, 2025 End: January 16, 2025 FOR RECORDS PERTAINING TO PATIENTS WHO ARE OR HAVE BEEN ENROLLED IN A CHEMICAL DEPENDENCY/SUBSTANCEABUSE PROGRAM, SOME INFORMATION MAY BE OMITTED. This clinical summary was aggregated from multiple sources. Caution should be exercised in using it in the provision of clinical care. This summary normalizes information from multiple sources, and as a consequence, information in this document may materially change the coding, format and clinical context of patient data. In addition, data may be omitted in some cases. CLINICAL DECISIONS SHOULD BE BASED ON THE PRIMARY CLINICAL RECORDS. [employer] [facility]. provides no warranty or guarantee of the accuracy or completeness of information in this document.
[2025-07-21 13:02] LABS: Hematocrit 41.2 % (40-54); Hemoglobin 14.8 g/dL (13.0-16.5); Immature Granulocytes Count 0.050 X10^3/uL (0.0-0.0); Mean Corp Hgb Conc 35.9 g/dL (32-36); Mean Corpuscular Volume 93.2 fL (80-94); Mean Platelet Vol. 11.5 fl (6.2-12.0); NRBC Flagged by Analyzer 0 % (0-5); Platelet Count 190 K/mm3 (150-450); RBC Distribution Width CV 11.8 % (11.6-14.6); RBC Distribution Width SD 40.6 fl (35.1-43.9); Red Blood Count 4.42 M/mm3 (4.6-6.2); White Blood Count 7.2 K/mm3 (4.4-11.0)
[2025-07-21 13:36] LABS: Ferritin 205 ng/mL (37-417); Iron 100 ug/dL (65-175); Vitamin B12 490 pg/mL (180-914); Vitamin D,25 Hydroxy 29.8 ng/mL (30-100)
[2025-07-21 13:39] LABS: AST(SGOT) 14 U/L (<=37); Alanine Aminotransfer ALT/SGPT 19 U/L (<=46); Albumin, Serum 4.2 g/dL (3.4-4.8); Alkaline Phosphatase 116 U/L (40-129); Anion Gap 13 (5-15); BUN 19 mg/dL (4-19); BUN/Creat Ratio 18.4 RATIO (10-20); Calcium,Total 9.6 mg/dL (7.6-11.0); Carbon Dioxide 23.1 mmol/L (21.0-32.0); Chloride 100 mmol/L (98-108); Cholesterol 179 mg/dL (<=200); Globulin 3.0 g/dL (2.2-4.2); Glucose 273 mg/dL (70-99); Low Density Lipoprotein Calc. 94 mg/dL; Potassium 4.6 mmol/L (3.3-5.1); Triglycerides 160 mg/dL; Very Low Density Lipoprotein 32 mg/dL (5-40); cholesterol:hdl ratio screen 3.36
[2025-07-21 14:02] LABS: PSA,Total - Annual Screen 1.17 ng/mL (0.02-4.00)
== END | disposition home or self-care (01) ==
LOC: BFHLAB 09:16
PROVIDERS: PCP Nurse Practitioner Family; Visit Provider Nurse Practitioner Family
DX: I10 Essential (primary) hypertension (principal); R53.83 Other fatigue; Z12.5 Encounter for screening for malignant neoplasm of prostate; E78.5 Hyperlipidemia, unspecified; E03.9 Hypothyroidism, unspecified; E55.9 Vitamin D deficiency, unspecified; E53.8 Deficiency of other specified B group vitamins; E61.1 Iron deficiency
CPT/HCPCS: 36415; 80053; 80061; 82306; 82607; 82728; 83540; 84153; 84403; 84439; 84443; 85025; G0103